=== PATIENT | male | born 1960 | race Caucasian/White ===

== ENCOUNTER → 2016-10-01 | Outpatient (CLI) | payer BC ==
--- NOTE | 2016-10-01 11:00 | XR ---
EXAMINATION TYPE: XR chest 2V DATE OF EXAM: 10/01/2016 10:24 AM HISTORY: J45.901 asthma w/exacerbation. REFERENCE: Previous study dated 11/14/2014. FINDINGS: The lungs are clear. Pleural spaces are clear. Heart size is normal. IMPRESSION: NORMAL CHEST.
== END | disposition home or self-care (01) ==
LOC: RADXRMAIN 10:13
PROVIDERS: ATTEND Physician Assistant
DX: J45.901 Unspecified asthma with (acute) exacerbation (principal)
CPT/HCPCS: 71020

== ENCOUNTER → 2018-05-15 | Outpatient (CLI) | payer BC ==
--- NOTE | 2018-05-16 13:30 | XR ---
EXAMINATION TYPE: XR Hip Complete LT DATE OF EXAM: 05/15/2018 CLINICAL HISTORY: Left hip pain with no known injury. TECHNIQUE: AP and frogleg views of the left hip are obtained. COMPARISON: None. FINDINGS: There is no acute fracture/dislocation evident in the left hip. The joint space in the le ft hip displays small subchondral cysts, small marginal osteophytes, acetabular roof sclerosis and mi ld joint space narrowing. No cam deformity at the femoral head neck junction. Surgical coils from kiana or abdominal surgery are partially visualized. The overlying soft tissue appears unremarkable. IMPRESSION: There is no acute fracture or dislocation in the left hip. Moderate left femoral acetabu lar arthropathy.
== END | disposition home or self-care (01) ==
LOC: RADXRMAIN 16:04
PROVIDERS: ATTEND Physician Assistant
DX: M16.12 Unilateral primary osteoarthritis, left hip (principal)
CPT/HCPCS: 73502

== ENCOUNTER → 2018-11-03 | Outpatient (CLI) | payer BC ==
--- NOTE | 2018-11-04 10:28 | MR ---
EXAMINATION TYPE: MR cervical spine wo con DATE OF EXAM: 11/03/2018 COMPARISON: None HISTORY: Neck pain, Migraines CONTRAST: Performed utilizing 0 mL intravenous Gadavist gadolinium contrast. TECHNIQUE: Multiplanar multiecho imaging on a 3.0 [place] magnet is performed through the cervical spin e. FINDINGS: The craniovertebral junction is normal. Vertebral body alignment is normal. C7-T1: Mild right paracentral disc bulge is present with anterior thecal sac compression. No cord co ntact is evident. No spinal canal stenosis is present. Mild right foraminal narrowing is present.. C6-7: There is a small central to right paracentral disc bulge with mild anterior thecal sac compress ion. No AP spinal canal stenosis is present. Neural foramen are patent.. C5-6: Broad-based disc bulge is present. This is greater in the left paracentral region no cord conta ct is evident. No spinal canal stenosis is present. There is moderate left foraminal stenosis.. C4-5: There is a small central protrusion with mild anterior thecal sac compression. No AP spinal can al stenosis present. No cord contact is evident. Right neural foraminal narrowing is present due to u ncovertebral joint hypertrophy. C3-4: There is a moderate central protrusion with moderate anterior thecal sac compression. This may have cord contact. Cord deformity is not identified. No AP spinal canal stenosis present. Neural fora men are patent.. C2-3: No focal disc herniation or significant disc bulge is evident. No spinal canal stenosis or jimenez ral foraminal stenosis is present. IMPRESSIONS: 1. Central protrusion with moderate anterior thecal sac compression and probable cord contact without deformity at C3-4. No stenosis is present. 2. Small central protrusion C4-5 with mild anterior thecal sac compression. 3. Disc bulging C5-6 C6-7 with anterior thecal sac contact discussed above. 4. Mild right paracentral disc bulge with anterior thecal sac compression C7-T1. 5. Mild to moderate Foraminal narrowing due to disc bulging and uncovertebral joint hypertrophy discu ssed above
== END | disposition home or self-care (01) ==
LOC: RADMRIMAIN 16:01
PROVIDERS: ATTEND Psychiatry & Neurology Neurology
DX: M48.02 Spinal stenosis, cervical region (principal); M50.11 Cervical disc disorder with radiculopathy, high cervical region; M50.822 Other cervical disc disorders at C5-C6 level; M50.83 Other cervical disc disorders, cervicothoracic region
CPT/HCPCS: 72141

== ENCOUNTER → 2018-11-10 | Outpatient (CLI) | payer BC ==
--- NOTE | 2018-11-11 08:35 | XR ---
EXAMINATION TYPE: XR chest 2V DATE OF EXAM: 11/10/2018 COMPARISON: 10/01/2016 HISTORY: Cough for one week TECHNIQUE: Frontal and lateral views of the chest are obtained. FINDINGS: There is no focal air space opacity, pleural effusion, or pneumothorax seen. Strand-like l eft basilar atelectasis is noted. The cardiac silhouette size is within normal limits. The osseous structures are intact. Mild multilevel degenerative changes of the thoracic spine are seen. IMPRESSION: Strand-like left basilar atelectasis otherwise no acute cardiopulmonary process.
== END ==
LOC: RADXRMAIN 16:10
PROVIDERS: ATTEND Physician Assistant
DX: J98.11 Atelectasis (principal)
CPT/HCPCS: 71046

== ENCOUNTER → 2018-12-18 | Outpatient (CLI) | payer BC ==
--- NOTE | 2018-12-18 14:59 | MR ---
EXAMINATION TYPE: MR brain wo/w con DATE OF EXAM: 12/18/2018 COMPARISON: CT dated 09/18/2018 and MRI brain dated 11/16/2014 HISTORY: Vascular headache TECHNIQUE: Multiplanar, multisequence images of the brain and brainstem is performed without and with IV contras t, utilizing 10 mL intravenous Gadavist . FINDINGS: Diffusion weighted images demonstrate no evidence of a recent infarct or other diffusion ab normality. There is no extra-axial fluid collection. There are stable punctate foci of subcortical a nd periventricular white matter change, the largest measuring up to 3 mm on the left in the frontal p eriventricular white matter and the largest on the right measuring 2 3 mm also in the subcortical par ietal lobe. The ventricular system and cisternal spaces are normal in size and appearance. The brain volume is a ge appropriate. Midline structures demonstrate normal morphology. The craniocervical junction appears within normal limits. Post contrast images demonstrate no abnormal intracranial enhancement. However, there appear s to be lack of enhancement in the left A1 segment. The dural venous sinuses appear patent. There is mild mucosal thickening in the maxillary sinuses and ethmoid sinuses, improved from the prior examina tion of 2014. The sphenoid sinus and mastoid sinuses are well aerated with only scant mucosal thicken ing seen in the frontal sinuses. IMPRESSION: 1. The left A1 segment appears occluded although this could relate to slice selection and could be fu lly evaluated with MRA brain. 2. Mild burden nonspecific white matter change is likely on the basis of chronic microangiopathy alth ough sequela of migraines is an alternative possibility. No abnormal intracranial enhancement. 3. No evidence of acute infarct, midline shift or mass effect. 4. Improved paranasal sinus disease in comparison to the exam of 2014.
== END | disposition home or self-care (01) ==
LOC: RADMRIMAIN 10:44
PROVIDERS: ATTEND Psychiatry & Neurology Neurology
DX: I73.9 Peripheral vascular disease, unspecified (principal)
CPT/HCPCS: 70553; A9585

== ENCOUNTER → 2019-01-11 | Outpatient (CLI) | payer BC ==
--- NOTE | 2019-01-12 07:03 | MR ---
EXAMINATION TYPE: MR angio head wo con DATE OF EXAM: 01/11/2019 COMPARISON: Prior MRI brain December 18, 2018. Prior CT brain September 18, 2018. HISTORY: Strong history of migraine headaches. Prior abnormal MRI. TECHNIQUE: Time of flight images focusing on the [place] were performed without contrast.. 2-D and 3-D postprocessing imaging is performed on independent workstation and reviewed. FINDINGS: There is codominant vertebrobasilar system. Vertebral arteries are patent to basilar juncti on. There are hypoplastic bilateral posterior communicating arteries. There is no significant focal s tenosis or aneurysmal change in the posterior circulation. There is small caliber but patent left A1 segment. There is patent anterior communicating artery. The re is no significant focal stenosis or aneurysmal change in the anterior circulation. IMPRESSION: No aneurysmal change at the level of the [place].
== END | disposition home or self-care (01) ==
LOC: RADMRIMAIN 15:37
PROVIDERS: ATTEND Psychiatry & Neurology Neurology
DX: R94.02 Abnormal brain scan (principal)
CPT/HCPCS: 70544

== ENCOUNTER → 2019-06-18 | Outpatient (CLI) | payer BC ==
--- NOTE | 2019-06-18 12:22 | XR ---
EXAMINATION TYPE: XR chest 2V DATE OF EXAM: 06/18/2019 COMPARISON: 11/10/2018 INDICATION: Asthma, cough TECHNIQUE: Frontal and lateral views of the chest are obtained. FINDINGS: The heart size is normal. The pulmonary vasculature is normal. The lungs are clear. IMPRESSION: 1. No acute pulmonary process.
== END | disposition home or self-care (01) ==
LOC: RADXRMAIN 11:55
PROVIDERS: ATTEND Internal Medicine
DX: R05 Cough (principal)
CPT/HCPCS: 71046

== ENCOUNTER → 2019-07-12 | Outpatient (CLI) | payer BC ==
--- NOTE | 2019-07-12 09:19 | US ---
EXAMINATION TYPE: US abdomen complete DATE OF EXAM: 07/12/2019 COMPARISON: NONE CLINICAL HISTORY: R10.84 Abdominal Pain. Weight loss EXAM MEASUREMENTS: Liver Length: 17.7 cm Gallbladder Wall: 0.3 cm CBD: 0.3 cm Spleen: n/a Right Kidney: 9.9 x 5.3 x 4.1 cm Left Kidney: 10.7 x 5.7 x 4.6 cm Pancreas: visualized portions wnl, limited by overlying midline bowel gas Liver: scanned intercostally, appears wnl Gallbladder: wnl Evidence for sonographic Holcomb's sign: no CBD: visualized portions wnl, limited by overlying bowel gas Spleen: obscured by overlying bowel gas Right Kidney: wnl Left Kidney: wnl Upper IVC: wnl Abd Aorta: wnl The liver is homogenous. The intrahepatic portion of the IVC and proximal abdominal aorta are within normal limits. There is no evidence of cholelithiasis. Common bile duct is unremarkable. There is limited visualization of the pancreas, largely obscured by overlying bowel gas. The spleen is obscure d by bowel gas. Kidneys are symmetric and free of hydronephrosis. No renal lesions are seen. IMPRESSION: 1. No sonographic evidence of cholelithiasis nor acute cholecystitis. 2. There is markedly limited evaluation of the pancreas and complete obscuration of the spleen by ove rlying bowel gas.
== END | disposition home or self-care (01) ==
LOC: RADUSWWP 07:42
PROVIDERS: ATTEND Internal Medicine
DX: R10.84 Generalized abdominal pain (principal)
CPT/HCPCS: 76700

== ENCOUNTER → 2019-07-29 | Outpatient (CLI) | payer BC ==
--- NOTE | 2019-07-29 13:09 | XR ---
EXAMINATION TYPE: XR lumbosacral spine min 4V DATE OF EXAM: 07/29/2019 CLINICAL HISTORY: Low back pain TECHNIQUE: Frontal, lateral, and oblique images of the lumbar spine are obtained. COMPARISON: None FINDINGS: Rudimentary right 12th rib and pseudoarticulation of the left 12th rib are incidentally see n. There is a very mild levoscoliosis of the lumbar spine. There are 5 lumbar type vertebral bodies i dentified. The lumbar spine shows no evidence of acute fracture or dislocation. Vertebral body heigh ts are maintained. There is very minimal retrolisthesis of L3 on L4 and L1 on L2. Intervertebral disc space narrowing is seen at T12-L1. Facet arthropathy is present at L3-S1. The oblique images appear within normal limits. The overlying soft tissue appears unremarkable. IMPRESSION: 1. No acute fracture is seen in the lumbar spine. 2. Multilevel very mild malalignment is likely on a degenerative basis with mild multilevel degenerat iwona disc disease of the lumbar spine. 3. Mild levoscoliosis of the lumbar spine.
== END | disposition home or self-care (01) ==
LOC: RADXRMAIN 11:47
PROVIDERS: ATTEND Internal Medicine
DX: M51.36 Other intervertebral disc degeneration, lumbar region (principal); M41.86 Other forms of scoliosis, lumbar region
CPT/HCPCS: 72110

== ENCOUNTER → 2019-08-03 | Outpatient (CLI) | payer BC ==
[2019-08-03 19:46] LABS: Dermato. farinae IgE <0.10 kU/L
[2019-08-03 19:47] LABS: Cat Epith & Dander IgE <0.10 kU/L; Dog Dander IgE <0.10 kU/L
[2019-08-03 19:48] LABS: Alternaria alternata IgE <0.10 kU/L; Aspergillus fumagatus IgE <0.10 kU/L; Cladosporian herbarum IgE <0.10 kU/L; Cockroach IgE <0.10 kU/L; Maple (Box Elder) IgE <0.10 kU/L
[2019-08-03 19:49] LABS: Birch IgE <0.10 kU/L; Elm IgE <0.10 kU/L; Oak IgE <0.10 kU/L
[2019-08-03 19:50] LABS: Ragweed,Common IgE <0.10 kU/L
[2019-08-03 19:52] LABS: Immunoglobulin E 5.58 IU/mL (0.00-114.00); Red Top (Bentgrass) IgE <0.10 kU/L
== END | disposition home or self-care (01) ==
LOC: LABWHC1 12:45
PROVIDERS: ATTEND Internal Medicine
DX: J45.20 Mild intermittent asthma, uncomplicated (principal); J30.2 Other seasonal allergic rhinitis; M62.81 Muscle weakness (generalized); Z87.898 Personal history of other specified conditions
CPT/HCPCS: 36415; 82550; 82785; 86003

== ENCOUNTER → 2019-08-14 | Outpatient (CLI) | payer BC ==
--- NOTE | 2019-08-16 08:40 | CT ---
EXAMINATION TYPE: CT ChestAbdPelvis w con DATE OF EXAM: 08/14/2019 COMPARISON: None HISTORY: Abnormal weight loss CT DLP: 1718 mGycm CONTRAST: CT scan of the chest, abdomen and pelvis is performed with Oral Contrast and with IV Contrast, patien t injected with 100 ml mL of Isovue 300. CT Chest: LUNGS: The lungs are clear and free of infiltrate or atelectasis. No pulmonary nodule or mass is det ected. No pleural effusion or CT evidence of interstitial lung disease. MEDIASTINUM: Thoracic aorta is of normal caliber. The heart is not enlarged. No evidence for media stinal mass or adenopathy. HILAR STRUCTURES: No evidence for mass. No hilar adenopathy is appreciated. OTHER: No significant abnormality. CONTRAST CT ABDOMEN AND PELVIS FINDINGS: LIVER/GB: No calcified gallstones. No space occupying hepatic lesion. Biliary tree is of normal ca liber. PANCREAS: No inflammation. No distinct mass. SPLEEN: No splenic enlargement. No lesion seen. ADRENALS: No nodule. No thickening. KIDNEYS/BLADDER: No hydronephrosis. No nephrolithiasis. No disctinct renal mass. BOWEL: Normal appendix. Normal bowel caliber. No inflammation. GENITAL ORGANS: No gross abnormality. LYMPH NODES: No greater than 1cm abdominal or pelvic lymph nodes are appreciated. AORTA: No significant abnormality. OSSEOUS STRUCTURES: No significant abnormality is seen. OTHER: No significant additional abnormality is seen. IMPRESSION: 1. No significant abnormality to account for the patient's symptoms.
== END | disposition home or self-care (01) ==
LOC: RADCTMAIN 13:33
PROVIDERS: ATTEND Internal Medicine
DX: R63.4 Abnormal weight loss (principal)
CPT/HCPCS: 71260; 74177; Q9967

== ENCOUNTER → 2019-08-20 | Outpatient (CLI) | payer BC | END | disposition home or self-care (01) | LOC: LABWHC1 11:20 | PROVIDERS: ATTEND Nurse Practitioner Family | DX: M79.10 Myalgia, unspecified site (principal) | CPT/HCPCS: 36415; 82550 ==

== ENCOUNTER → 2019-11-19 | Outpatient (CLI) | payer BC | END | disposition home or self-care (01) | LOC: LABWHC1 09:15 | PROVIDERS: ATTEND Nurse Practitioner Family | DX: M62.81 Muscle weakness (generalized) (principal) | CPT/HCPCS: 36415; 85652; 86140 ==

== ENCOUNTER → 2019-12-09 | Outpatient (CLI) | payer BC ==
[2019-12-09 21:56] LABS: Anti-DNA, DS unit <1.0 IU/mL; Anti-Smith Ab Interp NEGATIVE (NEGATIVE); Cyclic Citrull Pep IgG Unit <0.5 U/mL; Cyclic Citrullinated Pep IgG NEGATIVE (NEGATIVE); DNA Double-Stranded NEGATIVE (NEGATIVE); JO-1 IgG Antibody <0.2 AI; Scleroderma SC-70 Ab <0.2 AI
[2019-12-10 12:03] LABS: ANA Pattern Speckled
== END | disposition home or self-care (01) ==
LOC: LABWHC1 09:40
PROVIDERS: ATTEND Nurse Practitioner Family
DX: M25.50 Pain in unspecified joint (principal)
CPT/HCPCS: 36415; 83516; 86038; 86039; 86200; 86225; 86235

== ENCOUNTER → 2019-12-30 | Outpatient (CLI) | payer BC ==
[~2019-12-30] MED LIST: IODINE/POTASS IOD (LUGOLS) BOTTLE TOPICAL ONE
--- NOTE | 2019-12-31 07:44 | NM ---
EXAMINATION TYPE: NM DatScan Brain SPECT DATE OF EXAM: 12/30/2019 COMPARISON: NONE HISTORY: Tremor unspecified TECHNIQUE: 10 drops of Lugol's solution was administered 1 hour prior to injection as a thyroid bloc lovely agent. After the administration of 4.54 mCi I-123 Ioflupane DaTscan. Images obtained 3.5 hours post injection. SPECT images of the brain were acquired with axial and coronal reconstructions. FINDINGS: Normal and symmetric uptake is present along the striata IMPRESSION: Normal DYLLAN scan
== END | disposition home or self-care (01) ==
LOC: RADNMMAIN 10:42
PROVIDERS: ATTEND Psychiatry & Neurology Neurology
DX: G25.0 Essential tremor (principal); I10 Essential (primary) hypertension; E78.5 Hyperlipidemia, unspecified; F41.8 Other specified anxiety disorders; F32.9 Major depressive disorder, single episode, unspecified; G43.909 Migraine, unspecified, not intractable, without status migrainosus
CPT/HCPCS: 78803; A9584

== ENCOUNTER → 2020-02-01 | Outpatient (CLI) | payer BC ==
[2020-02-01 14:51] VITALS: BP 135/88; PULSE 67; RESP 16; TEMP 98.5
--- NOTE | 2020-02-01 15:27 | P.PAINCN ---
History of Present Illness - History of Present Illness This is a 59-year-old patient referred by Dr. Arrieta with a chief complaint of chronic pain in low back. Pain started in June 2019 when he was pulling on his boots at work. 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 He's had multiple scans and imaging and even a hip injection in 07/2019 with no help. He also has a history of severe migraines which is being managed with Pamelor and Sumatripan and is being worked up for possible JAQUELINE. The pain is currently a 5/10 located bilaterally in the low back, sometimes it will radiate into his buttocks and outer-lateral legs stopping at the calfs. Pain is described aching, dull, sharp and occasional pins and needles. Things that are heat, lying supine, marijuana (only smokes one at night to help him sleep), and TENS unit. Exacerbating factors are bending, sitting too long, walking too far, or changing positions. Patient has been taking medications OTC with little to no efficacy, TENS unit is the most helpful. Patient denies adverse drug effects from medications. Patient also denies new-onset weakness, bowel/bladder incontinence, or any other signs or symptoms of cauda equina syndrome. There are no signs of acute intoxication, and no indications of medication diversion or overuse. He has not had surgery or injections previously. He is currently doing PT In addition to above, 13-point review of systems is also negative for chest pain, shortness of breath, changes in vision, changes in hearing, new onset weakness, abdominal pain, diarrhea, extreme fatigue, malaise, fever, skin changes, homicidal or suicidal ideation, or bowel or bladder incontinence. Physical exam: Vital Signs: Reviewed in EMR GENERAL: Well appearing, in no acute distress PSYCH: Mood and affect is appropriate. Awake, alert, and oriented SKIN: Skin color, texture, turgor normal, no rashes or lesions HEENT: Normocephalic, atraumatic. EOM intact CV: No pedal edema RESP: Respirations are unlabored, no audible wheezing GI: Abdomen non-distended MUSCULOSKELETAL: Bilateral upper and lower extremity strength is normal and symmetric. No atrophy or tone abnormalities are noted. Lumbar spine: Straight leg raising in the sitting position is negative for radicular pain. pain to palpation over the lumbar spine and paraspinous muscles. Positive for pain with facet loading and back extension/rotation. Limited lumbar extension, adequate flexion Buttocks: No pain to palpation over the PSIS, Yadiel test is positive for low back pain Extremities: Peripheral joint ROM is full and pain free without obvious instability or laxity in all four extremities. No edema or skin discolorations noted. Gait: Gait is antalgic, stooped over as he walks NEUR: Bilateral upper and lower extremity coordination and muscle stretch reflexes are physiologic and symmetric. Negative clonus. No loss of sensation is noted. Cranial nerves are grossly intact. Imaging: MRI of lumbar spine from 10/2019 shows mild to moderate broad disc bulge with central protrusion and mild retrolisthesis at L3-L4, mild to moderate disc bulge minimally efacing anterior thecal sack at L4-L5 with posterior annular tear MRI left hip from 07/2019 shows left hip osteoarthritis Assessment: 1. Low back and bilateral buttock/leg pain: Patient has history of acute event that has brought on back and leg pain with MRI findings showing an annular tear with protrusion at the L4-L5 level. Patient describes symptoms of neurogenic claudication and some weakness in the bilateral lower extremities. Has had hip injection in the past with limited efficacy but has not had any injections in his lumbar spine before 2. Chronic daily migraine Plan: 1. Explanation: Diagnoses, prognoses, and multiple treatment options including but not limited to physical therapy, interventional therapies, medication management and surgery were discussed with the patient and all questions were answered to the patient's satisfaction. 2. Investigations: none 3. Counseling: The patient was counseled for 3 minutes on SMOKING CESSATION, EXERCISE. Specifically, the patient was instructed regarding the importance of smoking cessation, weight control, and exercise in the context of both chronic pain and overall health. 4. Procedures: L4-L5 ILESI and will schedule a 2nd one 2 weeks apart. Patient's medical insurance is running out on February 25 and after that they may have to consider disability given that his pain has caused him to not be able to work anymore 5. Consultations: None 6. Medications: None 7. Disposition: after procedure Past Medical History Past Medical History: Asthma, Hypertension, Musculoskeletal Disorder Additional Past Medical History / Comment(s): no longer needs BP med, chronic migraine headaches, bulging discs History of Any Multi-Drug Resistant Organisms: None Reported Past Surgical History: Hernia Repair Past Anesthesia/Blood Transfusion Reactions: No Reported Reaction Smoking Status: Former smoker - Past Family History Father Family Medical History: Hypertension Medications and Allergies Home Medications Medication Instructions Recorded Confirmed Type Albuterol Nebulized [Ventolin 2.5 mg INHALATION RT-Q4H PRN 11/15/14 02/01/20 History Nebulized] Albuterol Sulfate [Proventil Hfa] 1 - 2 puff PO RT-Q4H PRN 11/15/14 02/01/20 History Cyclobenzaprine [Flexeril] 10 mg PO HS 01/27/20 02/01/20 History Propranolol HCl 80 mg PO DAILY 01/27/20 02/01/20 History Allergies Allergy/AdvReac Type Severity Reaction Status Date / Time rosuvastatin calcium Allergy Severe PAIN/NUMBNE Verified 02/01/20 14:37 [From Crestor] SS PQRS Measure Charge Sheet Measure #226: Tobacco Use: Screen & Cessation Intervention: Pt not a tobacco user Measure #111: Pneumonia Vaccination: Pneumococcal vaccine NOT administered or previously given Measure #47: Advance Care Plan: Advance care planning discussed & documented, pt chose/unable to give Measure #412: Opioid Treatment Agreement: No documentation of signed opioid treatment agreement Measure #408: Opioid Therapy Follow-up Evaluation: Patient had NO f/u eval minimum every 3 months during opioid therapy Measure #317: Preventitive Care & Scrn High Bld Press & F/U: Normal blood pressure, f/u not required Measure #128: Body Mass Index (BMI) Screening & Follow-up: BMI documented within normal parameters Measure #131: Pain Assessment & Follow-up: Pain positive & plan documented Measure #431: Unhealthy Alcohol Use Preventative Care & Scrn: Patient not identified as an unhealthy alcohol user PQRS Narrative: Smoking Status Former smoker Pain Intensity [Lower Back] 6 Scale Used Numeric (1 - 10) Hx Alcohol Use (MH) No Home Medications: Ambulatory Orders Albuterol Nebulized [Ventolin Nebulized] 2.5 mg INHALATION RT-Q4H PRN 11/15/14 Albuterol Sulfate [Proventil Hfa] 1 - 2 puff PO RT-Q4H PRN 11/15/14 Cyclobenzaprine [Flexeril] 10 mg PO HS 01/27/20 Propranolol HCl 80 mg PO DAILY 01/27/20
== END | disposition home or self-care (01) ==
LOC: PNWHC3 14:21
PROVIDERS: ATTEND Anesthesiology
DX: M51.87 Other intervertebral disc disorders, lumbosacral region (principal); G43.909 Migraine, unspecified, not intractable, without status migrainosus; J45.909 Unspecified asthma, uncomplicated; I10 Essential (primary) hypertension; Z79.891 Long term (current) use of opiate analgesic; Z79.899 Other long term (current) drug therapy; Z88.8 Allergy status to other drugs, medicaments and biological substances; Z87.891 Personal history of nicotine dependence
CPT/HCPCS: 99211

== ENCOUNTER → 2020-02-08 | Outpatient (CLI) | payer BC ==
--- NOTE | 2020-02-08 12:05 | XR ---
EXAM TYPE: LUMBAR SPINE X RAY SERIES COMPARISON: 07/29/2019 HISTORY: Pain TECHNIQUE: 5 views are submitted including flexion-extension lateral views. FINDINGS: Multilevel moderate degenerative disc disease. There is a retrolisthesis of L3 relative to L4 and a s light anterolisthesis of L4 relative to L5. Diffuse osteopenia and multilevel facet arthropathy. There is slight reduction in the degree of retrolisthesis of L3 on flexion and extension images. Ante rolisthesis of L4 appears stable. Multilevel facet arthropathy and suspected foraminal encroachment. Minimal retrolisthesis of L1 relative to L2 unchanged from prior exam. IMPRESSION: 1. Multilevel degenerative disc disease with anterolisthesis L4 and L5. 2. Retrolisthesis L3 relative to L4 slightly improved on flexion and extension. 3. Multilevel facet arthropathy and suspected foraminal encroachment.
== END | disposition home or self-care (01) ==
LOC: RADXRMAIN 11:36
DX: M51.36 Other intervertebral disc degeneration, lumbar region (principal); M43.16 Spondylolisthesis, lumbar region; M46.96 Unspecified inflammatory spondylopathy, lumbar region
CPT/HCPCS: 72114

== ENCOUNTER 2020-02-10 08:29 | Day surgery (SDC) | payer BC ==
[2020-02-04 10:04] VITALS: BMI 23.3
[~2020-02-10 08:29] MED LIST changes: -IODINE/POTASS IOD (LUGOLS) BOTTLE TOPICAL ONE; +LACTATED RINGERS 1,000 ML IV SCH
[2020-02-10 08:48] VITALS: TEMP 97.6
[2020-02-10] MEDS ORDERED: LIDOCAINE 1% (10MG/ML) FOR IV START INTRADERMA ONE (08:57)
[2020-02-10] MEDS ORDERED: IOPAMIDOL M200 10 ML VIAL ONE (09:04)
[2020-02-10] MEDS ORDERED: fentaNYL (PF) 50 MCG/ML 2 ML AMP ONE (09:04)
[2020-02-10] MEDS ORDERED: methylPREDNISolone ACETATE 40 MG/ML 1 ML VIAL ONE (09:04)
[2020-02-10] MEDS ORDERED: MIDAZOLAM 2 MG/2 ML VIAL ONE (09:04)
--- NOTE | 2020-02-10 09:16 | P.PCN ---
Date of Procedure: 02/10/20 Procedure(s) Performed: PREOPERATIVE DIAGNOSIS: 1- Lumbar Degenerative Disc Diseases POSTOPERATIVE DIAGNOSIS: 1-Lumber Degenerative Disc Diseases PROCEDURE 1. Lumbar epidural steroid injection under fluoroscopic guidance at the L4-5 level. (Fluoroscopy imaging was available in radiology department) 2. Lumbar epidurogram. ANESTHESIA: Local with 1% lidocaine 3 ml and , moderate sedation with intravenous Versed 1mg ,and fentanyle 50 Mcg EBL: Minimal PROCEDURE INDICATION: The patient with low back pain and radiculitis symptoms unresponsive to conservative treatment. Fluoroscopy was used to optimize visualization of the needle placement and to maximize safety. PROCEDURE DESCRIPTION / TECHNIQUE: The patient was seen and identified in the preoperative area. Risks, benefits, complications including but not limited to infections ,bleeding ,allergic reaction to the medications ,nerve damage and not complete pain releife , and alternatives were discussed with the patient. The patient agreed to proceed with the procedure and signed the consent. IV was started, and vital signs were stable. Patient was taken to the OR and time out was completed. The patient was placed in the prone position on procedure table and a pillow was placed under the abdomen to reduce lumbar lordosis. The lumbosacral area was prepped and draped in the usual sterile fashion.ere closely monitored during the procedure. Conscious sedation was used during the procedure to decrease patients anxiety. Vital signs was monitered during the entire procedure. Using anterior-posterior fluoroscopy, the L4-5 interlaminar space was identified and the skin over this site was marked and then infiltrated with 1% lidocaine subcutaneously. Subsequently, a 20-gauge Tuohy epidural needle was inserted and advanced toward the epidural space using the ``Loss of resistance technique and guided by AP and lateral fluoroscopy. The correct needle position in the epidural space was verified with the injection of 2 mL of the water soluble contrast dye Isovue 200 contrast and observing an excellent epidurogram with the epidural spread of the dye, after negative aspiration for blood and CSF and in the absence of paresthesias. Again after negative aspiration, a 6 ml mixture containing 80 mg of Depo-medrol , and 2 ml of preservative free Normal Saline, and 2 ml of preservative free lidocaine 1% solution was injected and a washout of epidurogram was seen. Needle was withdrawn intact, skin was cleansed, and bandages were applied. COMPLICATIONS: None DISPOSITION / PLANS: The patient was placed in a supine position and transferred to the recovery area in a stable condition for observation. There was no evidence of lower extremity motor or sensory deficit after the procedure. Patient was discharged from the recovery room after meeting discharge criteria. Home discharge instructions were given to the patient by the staff. The patient was reexamined prior to discharge. The patient will schedule a follow up in the clinic in 2-4 weeks.
[2020-02-10] MEDS ORDERED: IV FLUID CONTINUATION 1,000 ML IV ONE (09:21)
--- NOTE | 2020-02-10 09:25 | FL ---
EXAMINATION TYPE: FL guided pain mgmt statistic DATE OF EXAM: 02/10/2020 HISTORY: Fluoroscopy time 3 seconds of fluoroscopy provided. IMPRESSION: 1. Fluoroscopy time.
[2020-02-10 09:45] VITALS: BP 114/74; PULSE 64; RESP 18
== END 2020-02-10 10:03 | disposition home or self-care (01) ==
LOC: ORPAIN 08:29
PROVIDERS: ATTEND Specialist
DX: M51.16 Intervertebral disc disorders with radiculopathy, lumbar region (principal); Z88.8 Allergy status to other drugs, medicaments and biological substances
CPT/HCPCS: 62323; J2250; J1030; J3010; Q9966

== ENCOUNTER 2020-02-24 07:26 | Day surgery (SDC) | payer BC ==
[2020-02-18 14:01] VITALS: BMI 23.6
[2020-02-24 07:54] VITALS: TEMP 97.2
[2020-02-24] MEDS ORDERED: LIDOCAINE 1% (10MG/ML) FOR IV START INTRADERMA ONE (07:55)
[2020-02-24] MEDS ORDERED: IOPAMIDOL M200 10 ML VIAL ONE (08:39)
[2020-02-24] MEDS ORDERED: methylPREDNISolone ACETATE 40 MG/ML 1 ML VIAL ONE (08:39)
[2020-02-24] MEDS ORDERED: MIDAZOLAM 2 MG/2 ML VIAL ONE (08:39)
[2020-02-24] MEDS ORDERED: fentaNYL (PF) 50 MCG/ML 2 ML AMP ONE (08:39)
--- NOTE | 2020-02-24 08:48 | P.PCN ---
Date of Procedure: 02/24/20 Procedure(s) Performed: 1- Lumbar Degenerative Disc Diseases POSTOPERATIVE DIAGNOSIS: 1-Lumber Degenerative Disc Diseases PROCEDURE 1. Lumbar epidural steroid injection under fluoroscopic guidance at the L4-5 level. (Fluoroscopy imaging was available in radiology department) 2. Lumbar epidurogram. ANESTHESIA: Local with 1% lidocaine 3 ml and , moderate sedation with intravenous Versed 2mg ,and fentanyle 50 Mcg EBL: Minimal PROCEDURE INDICATION: The patient with low back pain and radiculitis symptoms unresponsive to conservative treatment. Fluoroscopy was used to optimize visualization of the needle placement and to maximize safety. PROCEDURE DESCRIPTION / TECHNIQUE: The patient was seen and identified in the preoperative area. Risks, benefits, complications including but not limited to infections ,bleeding ,allergic reaction to the medications ,nerve damage and not complete pain releife , and alternatives were discussed with the patient. The patient agreed to proceed with the procedure and signed the consent. IV was started, and vital signs were stable. Patient was taken to the OR and time out was completed. The patient was placed in the prone position on procedure table and a pillow was placed under the abdomen to reduce lumbar lordosis. The lumbosacral area was prepped and draped in the usual sterile fashion.ere closely monitored during the procedure. Conscious sedation was used during the procedure to decrease patients anxiety. Vital signs was monitered during the entire procedure. Using anterior-posterior fluoroscopy, the L4-5 interlaminar space was identified and the skin over this site was marked and then infiltrated with 1% lidocaine subcutaneously. Subsequently, a 20-gauge Tuohy epidural needle was inserted and advanced toward the epidural space using the ``Loss of resistance technique and guided by AP and lateral fluoroscopy. The correct needle position in the epidural space was verified with the injection of 2 mL of the water soluble contrast dye Isovue 200 contrast and observing an excellent epidurogram with the epidural spread of the dye, after negative aspiration for blood and CSF and in the absence of paresthesias. Again after negative aspiration, a 6 ml mixture containing 80 mg of Depo-medrol , and 2 ml of preservative free Normal Saline, and 2 ml of preservative free lidocaine 1% solution was injected and a washout of epidurogram was seen. Needle was withdrawn intact, skin was cleansed, and bandages were applied. COMPLICATIONS: None DISPOSITION / PLANS: The patient was placed in a supine position and transferred to the recovery area in a stable condition for observation. There was no evidence of lower extremity motor or sensory deficit after the procedure. Patient was discharged from the recovery room after meeting discharge criteria. Home discharge instructions were given to the patient by the staff. The patient was reexamined prior to discharge. The patient will schedule a follow up in the clinic in 2-4 weeks.
[2020-02-24] MEDS ORDERED: IV FLUID CONTINUATION 600 ML IV ONE (08:53)
--- NOTE | 2020-02-24 09:06 | FL ---
EXAMINATION TYPE: FL guided pain mgmt statistic DATE OF EXAM: 02/24/2020 CLINICAL HISTORY: Low back pain. TECHNIQUE: Fluoroscopy. COMPARISON: None. FINDINGS: Fluoroscopic guidance was provided during pain relief procedure performed by Dr. Abbasi . A total of 2 seconds of fluoroscopic time was utilized during the procedure and single spot fluoro scopic image is acquired. Single image acquired shows needle localization at L4-L5 level with contra st injection. IMPRESSION: As Above.
[2020-02-24 09:14] VITALS: BP 128/83; RESP 20
[2020-02-24 09:16] VITALS: PULSE 63
== END 2020-02-24 09:51 | disposition home or self-care (01) ==
LOC: ORPAIN 07:26
PROVIDERS: ATTEND Specialist
DX: M51.16 Intervertebral disc disorders with radiculopathy, lumbar region (principal); Z88.8 Allergy status to other drugs, medicaments and biological substances
CPT/HCPCS: 62323; J2250; J1030; J3010; Q9966

== ENCOUNTER → 2020-03-22 | Outpatient (CLI) | payer BC, OTHER ==
[2020-03-22 13:52] VITALS: BP 143/84; PULSE 71; RESP 18; TEMP 98.3
--- NOTE | 2020-03-22 14:16 | P.PAINPG ---
Subjective Progress Note Date: 03/22/20 This is a 59-year-old patient referred by Dr. Arrieta with a chief complaint of chronic pain in low back. Pain started in June 2019 when he was pulling on his boots at work. 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 He's had multiple scans and imaging and even a hip injection in 07/2019 with no help. He also has a history of severe migraines which is being managed with Pamelor and Sumatripan and is being worked up for possible JAQUELINE. At our initial visit we felt his pain could be mediated from a disc bulge specifically at L4-L5, he is s/p LESI at that level x 2. Patient so that the lumbar epidural steroid injection worked at most for a week. Pain is currently 8 out of 10 located in the low back with occasional radiation into the buttocks, lower thoracic spine, and outer lateral legs stopping at the calves. Pain is constant aching and dull with occasional pins and needles. Alleviating factors are heat lying supine in marijuana (only smokes one at night help him sleep) and TENS unit exacerbating factors or any form of physical movement. Patient is taking Flexeril occasionally night to help which she says only helps with sleep. Patient also denies new-onset weakness, bowel/bladder incontinence, or any other signs or symptoms of cauda equina syndrome. There are no signs of acute intoxication, and no indications of medication diversion or overuse. Note patient was accompanied by his who notes that he even went to significant anxiety and stress that they've recently lost her health insurance. There was some thought of committing him to psychiatric were given possible suicidal thoughts and intentions, however he did not express those today. says she has been watching closely over him and we'll admit him to [facility] if needed. Patient is also been in touch with Dr. Arrieta, who recommended epidurals and then possible medial branch workup. However given the loss of health insurance will be seeing a colleague of Dr. Berny Marrero In addition to above, 13-point review of systems is also negative for chest pain, shortness of breath, changes in vision, changes in hearing, new onset weakness, abdominal pain, diarrhea, extreme fatigue, malaise, fever, skin changes, homicidal or suicidal ideation, or bowel or bladder incontinence. Physical exam: Vital Signs: Reviewed in EMR GENERAL: Well appearing, in no acute distress PSYCH: Mood and affect is appropriate. Awake, alert, and oriented SKIN: Skin color, texture, turgor normal, no rashes or lesions HEENT: Normocephalic, atraumatic. EOM intact CV: No pedal edema RESP: Respirations are unlabored, no audible wheezing GI: Abdomen non-distended MUSCULOSKELETAL: Bilateral upper and lower extremity strength is normal and symmetric. No atrophy or tone abnormalities are noted. Lumbar spine: Straight leg raising in the sitting position is negative for radicular pain. pain to palpation over the lumbar spine and paraspinous muscles. Positive for pain with facet loading and back extension/rotation. Limited lumbar extension, adequate flexion Buttocks: pain to palpation over the PSIS, Yadiel test is positive for low back pain Extremities: Peripheral joint ROM is limited and painfulwithout obvious instability or laxity in all four extremities. No edema or skin discolorations noted. Gait: Gait is antalgic, stooped over as he walks NEUR: Bilateral upper and lower extremity coordination and muscle stretch reflexes are physiologic and symmetric. Negative clonus. No loss of sensation is noted. Cranial nerves are grossly intact. Imaging: MRI of lumbar spine from 10/2019 shows mild to moderate broad disc bulge with central protrusion and mild retrolisthesis at L3-L4, mild to moderate disc bulge minimally efacing anterior thecal sac at L4-L5 with posterior annular tear MRI left hip from 07/2019 shows left hip osteoarthritis Assessment: 1. Low back and bilateral buttock/leg pain: Plan: 1. Explanation: Diagnoses, prognoses, and multiple treatment options including but not limited to physical therapy, interventional therapies, medication management and surgery were discussed with the patient and all questions were answered to the patient's satisfaction. 2. Investigations: none 3. Counseling: Long conversation with the patient is regarding psychiatric comorbidities. I educated him and his that patients with chronic pain and psychiatric comorbidities tend have worse pain in general. In regards to medication management, I did not want to prescribe any medications given the fact that his did report possible suicidal intentions and many of these medications can cause changes in mood 4. Procedures: Patient had 2 recent L4-L5 epidurals with no efficacy. MRI is relatively benign, however Dr. Arrieta was seen the patient prior had recommended pursuing medial branch block. If this does not work, they will consider surgery. At this point I do not feel that surgery is a great option given that the MRI is relatively benign. MRI does not comment much on the facet joints, it is possible that the patient could be having pain mediated from these structures. We will attempt a lumbar medial branch block bilaterally at L4-L5 and L5-S1. 5. Consultations: None 6. Medications: None 7. Disposition: after procedure PQRS Measure Charge Sheet Measure #226: Tobacco Use: Screen & Cessation Intervention: Pt not a tobacco user Measure #111: Pneumonia Vaccination: Pneumococcal vaccine NOT administered or previously given Measure #47: Advance Care Plan: Advance care planning discussed & documented, pt chose/unable to give Measure #412: Opioid Treatment Agreement: No documentation of signed opioid treatment agreement Measure #408: Opioid Therapy Follow-up Evaluation: Patient had NO f/u eval minimum every 3 months during opioid therapy Measure #317: Preventitive Care & Scrn High Bld Press & F/U: Normal blood pressure, f/u not required Measure #128: Body Mass Index (BMI) Screening & Follow-up: BMI documented within normal parameters Measure #131: Pain Assessment & Follow-up: Pain positive & plan documented Measure #431: Unhealthy Alcohol Use Preventative Care & Scrn: Patient not identified as an unhealthy alcohol user PQRS Narrative: Smoking Status Former smoker Pain Intensity [Lower Back] 6 Scale Used Numeric (1 - 10) Hx Alcohol Use (MH) No PQRS Measure Charge Sheet PQRS Narrative: Smoking Status Former smoker Pain Intensity [Lower Back] 5 Scale Used Numeric (1 - 10) Home Medications: Ambulatory Orders Albuterol Nebulized [Ventolin Nebulized] 2.5 mg INHALATION RT-Q4H PRN 11/15/14 Albuterol Sulfate [Proventil Hfa] 1 - 2 puff PO RT-Q4H PRN 11/15/14 Cyclobenzaprine [Flexeril] 5 mg PO HS 01/27/20 Propranolol HCl 80 mg PO HS 01/27/20 Controlled Substance Measures - Controlled Substance Measures Is patient prescribed a controlled substance at discharge?: No
== END | disposition home or self-care (01) ==
LOC: PNWHC3 13:32
PROVIDERS: ATTEND Anesthesiology
DX: M54.5 Low back pain (principal); M79.605 Pain in left leg; M79.604 Pain in right leg; Z87.891 Personal history of nicotine dependence; Z79.891 Long term (current) use of opiate analgesic; Z79.899 Other long term (current) drug therapy
CPT/HCPCS: 99211

== ENCOUNTER 2020-04-13 08:31 | Day surgery (SDC) | payer BC, OTHER ==
[2020-04-13 08:45] VITALS: TEMP 97.8
[2020-04-13] MEDS ORDERED: LACTATED RINGERS 1,000 ML IV ONE (08:46)
[2020-04-13] MEDS ORDERED: LIDOCAINE 1% (10MG/ML) FOR IV START INTRADERMA ONE (08:46)
[2020-04-13] MEDS ORDERED: MIDAZOLAM 2 MG/2 ML VIAL ONE (09:08)
[2020-04-13] MEDS ORDERED: TRIAMCINOLONE ACETONIDE 40 MG/ML 1 ML VIAL ONE (09:08)
[2020-04-13] MEDS ORDERED: ROPIVACAINE 5MG/ML 20ML VIAL ONE (09:08)
--- NOTE | 2020-04-13 09:27 | P.PCN ---
Date of Procedure: 04/13/20 Surgeon: Beatrice Sanchez Pathology: none sent Condition: stable Disposition: PACU Description of Procedure: PREOPERATIVE DIAGNOSIS : 1- Lumbar spondylosis with Facet Arthropathy without myelopathy . 2- Lumber degenerative disc disease POSTOPERATIVE DIAGNOSIS: 1- Lumbar spondylosis with Facet Arthropathy without myelopathy . 2- Lumber degenerative disc disease PROCEDURE: Diagnostic bilateral L4 -5 , and L5-S1 medial branch block under fluoroscopy Physician: Beatrice Sanchez MD ANESTHESIA: Local with 1% lidocaine; IV moderate conscious sedation with Versed 2 mg . EBL: Negligible COMPLICATION: None. PROCEDURE INDICATION: Chronic low back pain secondary to Facet arthropathy unresponsive to conservative treatment. PROCEDURE DESCRIPTION: the patient was seen and identified in the preop holding area , risks and benefits and possible complications of the procedure and alternatives were discussed with the patient, and the patient agreed to proceed with the procedure and signed the consent. IV was started and vital signs monitored during the procedure and fluoroscopy was used to maximize the benefit and accuracy of the needle placement, sedation was given to decrease patient anxiety, patient was taken to the procedure room and placed in prone position vital signs monitored. The patient was brought into the procedure room and placed in prone position. Skin was prepped with Chloraprep and draped in a sterile manner. Lidocaine 1% was used to numb the skin up at the target points that were chosen as follows: at the L5-S1 level which corresponds to the dorsal ramus of L5 the target points were at the superior medial aspect of the sacral ala on each side of the spine on the AP view of fluoroscopy, and for the L3 and L4 medial branches the target points were the connection between the transverse process and the superior to go process of L4 and L5 respectively on the oblique views of fluoroscopy. I used 22-gauge 3-1/2 inch Quincke spinal needles for this procedure and after contacting bone at the target points mentioned above I injected 1 mL of a mixture of Kenalog 40 mg +5 MLS of Ropivacaine 0.5% PF . Patient tolerated procedure well. At the end of the procedure the needles removed and a bandage applied after the skin was cleaned the cleaning solution. patient was then taken to the recovery room in stable condition and monitored in the recovery room for 20-30 minutes and discharged home in stable condition after discharge criteria met . A copy of the needle placement picture was saved to the C-arm machine.
[2020-04-13] MEDS ORDERED: IV FLUID CONTINUATION 600 ML IV ONE (09:33)
--- NOTE | 2020-04-13 09:44 | FL ---
Fluoroscopy INDICATION: Pain FINDINGS: Fluoroscopy time: 8 seconds. Images obtained: 3. IMPRESSIONS: 1. Documentation of fluoroscopy.
[2020-04-13 09:54] VITALS: RESP 20
[2020-04-13 10:01] VITALS: BP 122/68; PULSE 66
== END 2020-04-13 10:03 | disposition home or self-care (01) ==
LOC: ORPAIN 08:31
PROVIDERS: ATTEND Anesthesiology
DX: G89.29 Other chronic pain (principal); M47.816 Spondylosis without myelopathy or radiculopathy, lumbar region; M51.36 Other intervertebral disc degeneration, lumbar region; J45.909 Unspecified asthma, uncomplicated; Z79.899 Other long term (current) drug therapy; Z86.69 Personal history of other diseases of the nervous system and sense organs; Z88.8 Allergy status to other drugs, medicaments and biological substances
CPT/HCPCS: 64493; 64494; J2250; J3301; J2795; 99152

== ENCOUNTER 2020-05-12 06:17 | Day surgery (SDC) | payer OTHER ==
[2020-05-10 13:01] VITALS: BMI 23.7
[2020-05-12 06:45] VITALS: TEMP 97.2
[2020-05-12] MEDS ORDERED: MIDAZOLAM 2 MG/2 ML VIAL ONE (07:10)
[2020-05-12] MEDS ORDERED: TRIAMCINOLONE ACETONIDE 40 MG/ML 1 ML VIAL ONE (07:10)
[2020-05-12] MEDS ORDERED: ROPIVACAINE 5MG/ML 20ML VIAL ONE (07:10)
--- NOTE | 2020-05-12 07:29 | P.PCN ---
Date of Procedure: 05/12/20 Surgeon: Beatrice Sanchez Pathology: none sent Condition: stable Disposition: PACU Description of Procedure: PREOPERATIVE DIAGNOSIS : 1- Lumbar spondylosis with Facet Arthropathy without myelopathy . 2- Lumber degenerative disc disease POSTOPERATIVE DIAGNOSIS: 1- Lumbar spondylosis with Facet Arthropathy without myelopathy . 2- Lumber degenerative disc disease PROCEDURE: Diagnostic bilateral L4 -5 , and L5-S1 medial branch block under fluoroscopy Physician: Beatrice Sanchez MD ANESTHESIA: Local with 1% lidocaine; moderate sedation by the anesthesia services . EBL: Negligible COMPLICATION: None. PROCEDURE INDICATION: Chronic low back pain secondary to Facet arthropathy unresponsive to conservative treatment. PROCEDURE DESCRIPTION: the patient was seen and identified in the preop holding area , risks and benefits and possible complications of the procedure and alternatives were discussed with the patient, and the patient agreed to proceed with the procedure and signed the consent. IV was started and vital signs monitored during the procedure and fluoroscopy was used to maximize the benefit and accuracy of the needle placement, sedation was given to decrease patient anxiety, patient was taken to the procedure room and placed in prone position vital signs monitored. The patient was brought into the procedure room and placed in prone position. Skin was prepped with Chloraprep and draped in a sterile manner. Lidocaine 1% was used to numb the skin up at the target points that were chosen as follows: at the L5-S1 level which corresponds to the dorsal ramus of L5 the target points were at the superior medial aspect of the sacral ala on each side of the spine on the AP view of fluoroscopy, and for the L3 and L4 medial branches the target points were the connection between the transverse process and the superior to go process of L4 and L5 respectively on the oblique views of fluoroscopy. I used 22-gauge 3-1/2 inch Quincke spinal needles for this procedure and after contacting bone at the target points mentioned above I injected 1 mL of a mixture of Kenalog 40 mg +5 MLS of Ropivacaine 0.5% PF . Patient tolerated procedure well. At the end of the procedure the needles removed and a bandage applied after the skin was cleaned the cleaning solution. patient was then taken to the recovery room in stable condition and monitored in the recovery room for 20-30 minutes and discharged home in stable condition after discharge criteria met . A copy of the needle placement picture was saved to the C-arm machine.
[2020-05-12] MEDS ORDERED: IV FLUID CONTINUATION 1,000 ML IV ONE (07:35)
[2020-05-12 07:39] VITALS: RESP 18
[2020-05-12 07:49] VITALS: BP 135/86; PULSE 57
--- NOTE | 2020-05-12 08:28 | FL ---
EXAMINATION TYPE: FL guided pain mgmt statistic DATE OF EXAM: 05/12/2020 FLUOROSCOPY Fluoroscopy time of 6 seconds was used during bilateral lumbar facet block. 3 image/s document/s the procedure.
== END 2020-05-12 08:05 | disposition home or self-care (01) ==
LOC: ORPAIN 06:17
PROVIDERS: ATTEND Anesthesiology
DX: G89.29 Other chronic pain (principal); M47.816 Spondylosis without myelopathy or radiculopathy, lumbar region; M51.36 Other intervertebral disc degeneration, lumbar region; G43.909 Migraine, unspecified, not intractable, without status migrainosus; J45.909 Unspecified asthma, uncomplicated; Z88.8 Allergy status to other drugs, medicaments and biological substances; Z79.899 Other long term (current) drug therapy; Z79.1 Long term (current) use of non-steroidal anti-inflammatories (NSAID)
CPT/HCPCS: 64493; 64494; J2250; J3301; J2795

== ENCOUNTER → 2020-05-29 | Outpatient (CLI) | payer OTHER ==
[2020-05-29 13:01] VITALS: BP 134/89; PULSE 83; RESP 16; TEMP 98
--- NOTE | 2020-05-29 13:12 | P.PAINPG ---
Subjective Progress Note Date: 05/29/20 This is a 59-year-old patient referred by Dr. Arrieta with a chief complaint of chronic pain in low back. Pain started in June 2019 when he was pulling on his boots at work. 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 He's had multiple scans and imaging and even a hip injection in 07/2019 with no help. He also has a history of severe migraines which is being managed with Pamelor and Sumatripan and is being worked up for possible JAQUELINE. At our initial visit we felt his pain could be mediated from a disc bulge specifically at L4-L5, he is s/p LESI at that level x 2. However they only worked for a week. In our last visit we felt his pain may be facet mediated and we performed bilateral MBB at L4-L5 and L5-S1. Russell notes that she had good relief for about 2-3 days after recent medial branch blocks. Since then his pain is returned back significantly. Pain is currently 8 out of 10 located in the low back with occasional radiation into the buttocks, lower thoracic spine, and outer lateral legs stopping at the calves. Pain is constant aching and dull with occasional pins and needles. Alleviating factors are heat lying supine in marijuana (only smokes one at night help him sleep) and TENS unit exacerbating factors or any form of physical movement. Patient is taking Flexeril occasionally night to help which she says only helps with sleep. Patient also denies new-onset weakness, bowel/bladder incontinence, or any other signs or symptoms of cauda equina syndrome. There are no signs of acute intoxication, and no indications of medication diversion or overuse. He is accompanied by his . Patient is going through significant mental stresses and has recently been started on antidepressant medication. Suicidal ideation. has been helping as much she can with his overall care but is noted that lately he has been just laying in bed all day due to significant pain. They're hopeful that the radiofrequency ablation can help with his func tionality. Patient has been seeing Dr. Arrieta but they had a recent insurance change and have been having issues seeing him. Regardless they do not want surgery. In addition to above, 13-point review of systems is also negative for chest pain, shortness of breath, changes in vision, changes in hearing, new onset weakness, abdominal pain, diarrhea, extreme fatigue, malaise, fever, skin changes, homicidal or suicidal ideation, or bowel or bladder incontinence. Physical exam: Vital Signs: Reviewed in EMR GENERAL: Well appearing, in no acute distress PSYCH: Mood and affect is appropriate. Awake, alert, and oriented SKIN: Skin color, texture, turgor normal, no rashes or lesions HEENT: Normocephalic, atraumatic. EOM intact CV: No pedal edema RESP: Respirations are unlabored, no audible wheezing GI: Abdomen non-distended MUSCULOSKELETAL: Bilateral upper and lower extremity strength is normal and symmetric. No atrophy or tone abnormalities are noted. Lumbar spine: Straight leg raising in the sitting position is negative for radicular pain. pain to palpation over the lumbar spine and paraspinous muscles. Positive for pain with facet loading and back extension/rotation. Limited lumbar extension, adequate flexion Buttocks: pain to palpation over the PSIS, Yadiel test is positive for low back pain Extremities: Peripheral joint ROM is limited and painful without obvious instability or laxity in all four extremities. No edema or skin discolorations noted. Gait: Gait is antalgic, stooped over as he walks NEUR: Bilateral upper and lower extremity coordination and muscle stretch reflexes are physiologic and symmetric. Negative clonus. No loss of sensation is noted. Cranial nerves are grossly intact. Imaging: MRI of lumbar spine from 10/2019 shows mild to moderate broad disc bulge with central protrusion and mild retrolisthesis at L3-L4, mild to moderate disc bulge minimally efacing anterior thecal sac at L4-L5 with posterior annular tear MRI left hip from 07/2019 shows left hip osteoarthritis Assessment: 1. Low back and bilateral buttock/leg pain Plan: 1. Explanation: Diagnoses, prognoses, and multiple treatment options including but not limited to physical therapy, interventional therapies, medication management and surgery were discussed with the patient and all questions were answered to the patient's satisfaction. 2. Investigations: none 3. Counseling: Long conversation with the patient is regarding psychiatric comorbidities. I educated him and his that patients with chronic pain and psychiatric comorbidities tend have worse pain in general. In regards to medication management, I did not want to prescribe any medications given the fact that his did report possible suicidal intentions and many of these medications can cause changes in mood 4. Procedures: Bilateral L4-L5 and L5-S1 RFA 5. Consultations: Recommend physical therapy referral after RFA. Patient is becoming more deconditioned as he lays in bed all day and I encouraged him to be as mobile as active as he can. Patient is motivated to do so 6. Medications: None 7. Disposition: as needed PQRS Measure Charge Sheet Measure #226: Tobacco Use: Screen & Cessation Intervention: Pt not a tobacco user Measure #111: Pneumonia Vaccination: Pneumococcal vaccine NOT administered or previously given Measure #47: Advance Care Plan: Advance care planning discussed & documented, pt chose/unable to give Measure #412: Opioid Treatment Agreement: No documentation of signed opioid treatment agreement Measure #408: Opioid Therapy Follow-up Evaluation: Patient had NO f/u eval minimum every 3 months during opioid therapy Measure #317: Preventitive Care & Scrn High Bld Press & F/U: Normal blood pressure, f/u not required Measure #128: Body Mass Index (BMI) Screening & Follow-up: BMI documented within normal parameters Measure #131: Pain Assessment & Follow-up: Pain positive & plan documented Measure #431: Unhealthy Alcohol Use Preventative Care & Scrn: Patient not identified as an unhealthy alcohol user PQRS Narrative: Smoking Status Former smoker Pain Intensity [Lower Back] 6 Scale Used Numeric (1 - 10) Hx Alcohol Use (MH) No PQRS Measure Charge Sheet PQRS Narrative: Smoking Status Former smoker Pain Intensity [Lower Back] 5 Scale Used Numeric (1 - 10) Controlled Substance Measures - Controlled Substance Measures Is patient prescribed a controlled substance at discharge?: No PQRS Measure Charge Sheet PQRS Narrative: Smoking Status Former smoker Scale Used Numeric (1 - 10) Hx Alcohol Use (MH) No Home Medications: Ambulatory Orders Albuterol Nebulized [Ventolin Nebulized] 2.5 mg INHALATION RT-Q4H PRN 11/15/14 Albuterol Sulfate [Proventil Hfa] 1 - 2 puff PO RT-Q4H PRN 11/15/14 Cyclobenzaprine [Flexeril] 5 mg PO HS 01/27/20 Diclofenac Sodium Gel [Voltaren Gel] 4 gm TOPICAL QID PRN 05/10/20 Escitalopram [Lexapro] 20 mg PO DAILY 05/10/20 Ibuprofen [Motrin] 600 mg PO Q6HR PRN 05/10/20 Lidocaine 5% Patch [Lidoderm] 1 patch TOPICAL DAILY PRN 05/10/20 Gabapentin [Neurontin] 300 mg PO BID 05/26/20 Controlled Substance Measures - Controlled Substance Measures Is patient prescribed a controlled substance at discharge?: No
== END | disposition home or self-care (01) ==
LOC: PNWHC3 12:33
PROVIDERS: ATTEND Anesthesiology
DX: M79.606 Pain in leg, unspecified (principal); M54.5 Low back pain; M79.18 Myalgia, other site; Z87.891 Personal history of nicotine dependence; Z79.899 Other long term (current) drug therapy
CPT/HCPCS: 99211

== ENCOUNTER 2020-06-02 09:23 | Day surgery (SDC) | payer OTHER ==
[2020-06-01 09:52] VITALS: BMI 23.7
[2020-06-02 09:44] VITALS: TEMP 97.8
[2020-06-02] MEDS ORDERED: LACTATED RINGERS 1,000 ML IV ONE (09:45)
[2020-06-02] MEDS ORDERED: LIDOCAINE 1% (10MG/ML) FOR IV START INTRADERMA ONE (09:45)
[2020-06-02] MEDS ORDERED: fentaNYL (PF) 50 MCG/ML 2 ML AMP ONE (10:04)
[2020-06-02] MEDS ORDERED: LIDOCAINE 1% INJ 10MG/ML (20 ML MDV) ONE (10:04)
[2020-06-02] MEDS ORDERED: MIDAZOLAM 2 MG/2 ML VIAL ONE (10:04)
[2020-06-02] MEDS ORDERED: ROPIVACAINE 5MG/ML 20ML VIAL ONE (10:04)
[2020-06-02] MEDS ORDERED: TRIAMCINOLONE ACETONIDE 40 MG/ML 1 ML VIAL ONE (10:04)
--- NOTE | 2020-06-02 10:34 | P.PCN ---
Date of Procedure: 06/02/20 Surgeon: Beatrice Sanchez Pathology: none sent Condition: stable Disposition: PACU Description of Procedure: PREOPERATIVE DIAGNOSIS: Lumbar spondylosis without myelopathy POSTOPERATIVE DIAGNOSIS: Lumbar spondylosis without myelopathy PROCEDURES : Bilateral Radiofrequency thermocoagulation L4-L5, and L5-S1 medial branch, with fluoroscopic guidance ANESTHESIA: IV moderate conscious sedation with versed and fentanyl and local infiltration with lidocaine 1% 5 ml Physician:Beatrice Sanchez MD EBL: Minimal PROCEDURE INDICATION: The patient with low back pain secondary to lumbar facet arthropathy who had more than 50% relief of her pain with previous diagnostic lumbar medial branch block with bupivacaine. PROCEDURE DESCRIPTION / TECHNIQUE: The patient was seen and identified in the preoperative area. Risks, benefits, complications, including but not limited to risk of infection ,bleeding , allergic reactions to the medications and no complete pain relief , and alternatives were discussed with the patient, the patient agreed to proceed with the procedure and signed the consent. IV was started. Vital signs remained stable throughout the procedure. Patient was taken to the OR and time out was completed. The patient was placed in the prone position on the procedure table. The lumber area was prepped and draped in the usual sterile fashion. . Vital signs were closely monitored during the procedure .IV sedation was used during the procedure to decrease patients anxiety. The target points were identified as follows: For the L5-S1 level which corresponds to the dorsal ramus of L5 the target point was at the superior medial aspect of the sacral ala on the Rt side of the spine on the AP view of fluoroscopy and for the L3, and L4 medial branches the target points were at the connection between the transverse process and the superior articular process of L4, and L5 vertebra respectively on the Rt oblique view of fluoroscopy. skin was marked, and localized with 1% lidocaineat these points. Subsequently, an 18 -rm radiofrequency needles with a 10-mm curved active tips were advanced guided by fluoroscopy to each of the target points mentioned above in a superior medial direction to get the active tips as parallel as possible to the medial branches tracks. AP, oblique, and lateral views of fluoroscopy were used to verify needle tips position. The same procedure was repeated on the left side Each level then underwent motor testing at 2.5 Hz and 0 to 3 volt with local stimulation, but no radicular symptoms down the legs. I then injected 1 mL of lidocaine 1% in each needle before starting radiofrequency thermocoagulation at 80 degrees celsius for 90 seconds. After that I injected 1 ml of PF Marcaine 0.5%(3 mls) with 40 mg of Kenalog, 1 mL of this mixture was given in each needle before taking the needles out intact. At the end of the procedure, the skin was cleansed and bandages were applied. A copy of needle placement fluoroscopy was saved on the C-arm machine. COMPLICATIONS: No acute complications. DISPOSITION / PLANS: The patient was placed in a supine position and transferred to the recovery area in a stable condition for observation and was discharged from the recovery room after meeting discharge criteria. Home discharge instructions given to the patient by the staff. The patient was reexamined prior to discharge. The patient will schedule a follow up in the clinic in 2-4 weeks.
[2020-06-02 10:44] VITALS: RESP 16
[2020-06-02] MEDS ORDERED: IV FLUID CONTINUATION 1,000 ML IV ONE (10:44)
--- NOTE | 2020-06-02 10:56 | FL ---
EXAMINATION TYPE: FL guided pain mgmt statistic DATE OF EXAM: 06/02/2020 CLINICAL HISTORY: Low back pain. TECHNIQUE: Fluoroscopy. COMPARISON: None. FINDINGS: Fluoroscopic guidance was provided during pain relief procedure performed by Dr. Sanchez . A total of 20 seconds of fluoroscopic time was utilized during the procedure and 10 spot images are acquired. Images acquired shows needle localization at multiple levels in the lumbar spine. IMPRESSION: As Above.
[2020-06-02 10:59] VITALS: BP 151/90; PULSE 64
== END 2020-06-02 11:12 | disposition home or self-care (01) ==
LOC: ORPAIN 09:23
PROVIDERS: ATTEND Anesthesiology
DX: M47.816 Spondylosis without myelopathy or radiculopathy, lumbar region (principal); G43.909 Migraine, unspecified, not intractable, without status migrainosus; Z88.8 Allergy status to other drugs, medicaments and biological substances; Z79.1 Long term (current) use of non-steroidal anti-inflammatories (NSAID)
CPT/HCPCS: 64635; 64636; J2250; J3301; J2001; J3010; J2795; 99152; 99153

== ENCOUNTER → 2020-06-19 | Outpatient (CLI) | payer OTHER ==
[2020-06-19 12:53] VITALS: BP 134/92; PULSE 101; RESP 18; TEMP 97.6
--- NOTE | 2020-06-19 20:36 | P.PN ---
Subjective Progress Note Date: 06/19/20 This is from office for this 59 years old male with a chronic history of severe low back pain is thought to June 2019, the patient diagnosed with lumbar degenerative disc disease ,.and lumbar spondylosis with lumbar facet arthropathy, previously we have done lumbar epidural steroid injections 2, patient continued to have severe low back pain, and later on was followed with RFA of the medial branch lumbar area, patient continued to have severe low back pain and the pain is constant and increases with any activity interfere with the quality of life, patient is not able to function or do activities of daily living secondary to an intensity of the pain, he continued to use Motrin when necessary and Voltaren gel R) and he continue to use Neurontin 300 mg twice a day and Flexeril when necessary, patient is able to do physical therapy secondary to the pain Objective - Vital Signs Vital signs: Vital Signs Temp 97.6 F 06/19/20 12:38 Pulse 101 H 06/19/20 12:38 Resp 18 06/19/20 12:38 BP 134/92 06/19/20 12:38 Pulse Ox 98 06/19/20 12:38 - Exam Physical Examinations : -Constitutiona : Cooperative , not in acute distress . -HEENT : nech : supple , no Lymphadenopathy , normal thyroid size . : eyes : no ptosis , no icterus, no photophobia . - neurologic : Cranial nerve II to XII intact , no focal neurological deffecit . -psychatric : alert , oriented X 3 , appropriate affect , intact judgment and insight . -Lymphatic : no Lymphadenopathy . - musculoskeltal : Lumber spine moter stegnth lower extremities ,thigh and legs 5/5 Right side , 5/5 Left side deep tendon reflexes : normal Knee Jerk , normal ankle Jerk lumber facet Loading Test =positive Right , positive Left Range of motion of the lumbar spine Flexion 30 degrees, extension 10 degrees strait leg raising test = positive at 30 degree Fabere test= positive Right , and positive LT . Sever tenderness over the Sacroiliac joint on the Right , and Left sides Gaenslen test= positive right ,and positive left . Seated flexion test= positive right ,and positive Left . Generalized tenderness in the lumbar paraspinal muscles Assessment and Plan Plan: Assessment and plan=1-lumbar degenerative disc disease. 2-lumbar spondylosis with lumbar facet arthropathy. The patient had no benefit from lumbar epidural steroid injections X2 The patient had no benefit from RFA of the medial branch lumbar area. Patient could benefit from physical therapy evaluation and treatment, The patient will follow up with Dr. Arrieta neurosurgery for evaluation for possible surgical interventions - PQRS measures = - Patient's medications are documented in the chart. -Tobacco use is positive and counseling.Given. -Patient's has not received pneumococcal vaccine. -Advanced care planning discussed, patient not eligible. -Opiate contract signed. -Pain positive and follow-up visit/procedure is scheduled. -Patient's blood pressure measured [ 134/92 ] , and documented in the record ,and patient will follow up with the primary care. -Patient's weight was measured and body mass index [ 25.1 ]within the normal limits and counseling was done. and patient instructed to follow-up with the primary care physician. -Patient was not identified as an unhealthy alcohol user Time with Patient: Less than 30
== END | disposition home or self-care (01) ==
LOC: PNWHC3 12:29
PROVIDERS: ATTEND Specialist
DX: M51.36 Other intervertebral disc degeneration, lumbar region (principal); M47.816 Spondylosis without myelopathy or radiculopathy, lumbar region
CPT/HCPCS: 99211

== ENCOUNTER → 2020-10-11 | Outpatient (CLI) | payer OTHER ==
[2020-10-11 09:56] VITALS: BP 121/88; PULSE 107; RESP 16; TEMP 97.9
--- NOTE | 2020-10-11 10:02 | P.PN ---
Subjective Progress Note Date: 10/11/20 This is follow up visit for this 59 years old male with a chronic history of severe low back pain , the pain is constant ,increases with any activity, interfere with the quality of life, patient is not able to function, or do activities of daily living secondary to an intensity of the pain, he continued t o use Motrin when necessary and Voltaren gel R) and he continue to use Neurontin 300 mg twice a day, and Flexeril when necessary, with pain in the low back area is constant , he denies any fever or night sweats Physical Examinations : Physical Examinations : -Constitutiona : Cooperative , not in acute distress . -HEENT : nech : supple , no Lymphadenopathy , normal thyroid size . : eyes : no ptosis , no icterus, no photophobia . - neurologic : Cranial nerve II to XII intact , no focal neurological deffecit . -psychatric : alert , oriented X 3 , appropriate affect , intact judgment and insight . -Lymphatic : no Lymphadenopathy . - musculoskeltal : Lumber spine moter stegnth lower extremities ,thigh and legs 5/5 Right side , 5/5 Left side deep tendon reflexes : normal Knee Jerk , normal ankle Jerk lumber facet Loading Test =positive Right , positive Left Range of motion of the lumbar spine Flexion 30 degrees, extension 10 degrees strait leg raising test = positive at 45 degree Fabere test= positive Right , and positive LT . Sever tenderness over the Sacroiliac joint on the Right , and Left sides Gaenslen test= positive right ,and positive left . Seated flexion test= positive right ,and positive Left . Distraction test= positive bilaterally Sacroiliac compression test= positive bilaterally Assessment and Plan Plan: Assessment and plan=1-lumbar degenerative disc disease. 2-lumbar spondylosis with lumbar facet arthropathy 3-bilateral sacroiliitis. The patient had no benefit from lumbar epidural steroid injections X2 The patient had no benefit from RFA of the medial branch lumbar area. Patient could benefit from bilateral sacroiliac joint steroid injection Recommend continue his current medication Neurontin, flexeril , Voltaren gel, Motrin - PQRS measures = - Patient's medications are documented in the chart. -Tobacco use is negative and counseling.Given. -Patient's has not received pneumococcal vaccine. -Advanced care planning discussed, patient not eligible. -Opiate contract not signed. -Pain positive and follow-up visit/procedure is scheduled. -Patient's blood pressure measured [121/88 ] , and documented in the record ,and patient will follow up with the primary care. -Patient's weight was measured and body mass index [ 25 ] within the normal limits and counseling was done. and patient instructed to follow-up with the primary care physician. -Patient was not identified as an unhealthy alcohol user Objective - Vital Signs Vital signs: Vital Signs Temp 97.9 F 10/11/20 09:43 Pulse 107 H 10/11/20 09:43 Resp 16 10/11/20 09:43 BP 121/88 10/11/20 09:43 Pulse Ox 99 10/11/20 09:43 Intake & Output 10/10/20 10/11/20 10/11/20 18:59 06:59 18:59 Weight 86.183 kg
== END | disposition home or self-care (01) ==
LOC: PNWHC3 09:20
PROVIDERS: ATTEND Specialist
DX: M51.36 Other intervertebral disc degeneration, lumbar region (principal); M47.816 Spondylosis without myelopathy or radiculopathy, lumbar region; M46.1 Sacroiliitis, not elsewhere classified
CPT/HCPCS: 99211

== ENCOUNTER 2020-11-16 08:58 | Day surgery (SDC) | payer OTHER ==
[2020-11-14 10:48] VITALS: BMI 24.4
[2020-11-16 09:18] VITALS: RESP 16; TEMP 97.1
[2020-11-16] MEDS ORDERED: LIDOCAINE 1% (10MG/ML) FOR IV START INTRADERMA ONE (09:24)
[2020-11-16] MEDS ORDERED: fentaNYL (PF) 50 MCG/ML 2 ML AMP ONE (09:50)
[2020-11-16] MEDS ORDERED: MIDAZOLAM 2 MG/2 ML VIAL ONE (09:50)
[2020-11-16] MEDS ORDERED: ROPIVACAINE 5MG/ML 20ML VIAL ONE (09:50)
[2020-11-16] MEDS ORDERED: TRIAMCINOLONE ACETONIDE 40 MG/ML 1 ML VIAL ONE (09:50)
--- NOTE | 2020-11-16 10:02 | P.PCN ---
Date of Procedure: 11/16/20 Surgeon: Beatrice Sanchez Pathology: none sent Condition: stable Disposition: PACU Description of Procedure: Description of Procedure: Preoperative diagnoses= bilateral sacroiliac joint dysfunction and sacroiliitis Postoperative diagnoses= same as preoperative diagnosis. Procedure= bilateral sacroiliac joint steroid injection under fluoroscopic guidance. Anesthesia= local anesthesia with lidocaine 1% and IV moderate conscious sedation with fentanyl and Versed Estimated blood loss=minimal. Procedure indication= the patient had a history of severe chronic low back pain, diagnosed with sacroiliitis and lumbar sacral facet arthropathy unresponsive to conservative treatment. Procedure description= the patient was seen and identified in the preoperative holding area, risks and benefits and alternative of the procedure and possible complications discussed with the patient, patient signed the consent. an IV was started, and vital signs were monitored and were stable throughout the procedure, patient was placed in the prone position or table and the lumbosacral area was prepped and draped with a sterile fashion, vital signs were closely monitored during the procedure.The sacroiliac joint was identified on the AP view of fluoroscopy then the C-arm was tilted to the contralateral oblique position to superimpose the anterior and posterior joint lines on each other and to have a unified joint line with the target point at the inferior one third of this line. I used 22-gauge 3-1/2 inch Quincke spinal needle for this procedure and after getting into the sacroiliac joint I injected 20 mg of Kenalog +2 MLS of Ropivacaine 0.5%. The same procedure was repeated on the opposite side in the same manner. Patient tolerated the procedure well without any complication, The patient returned to supine position after the back was cleaned and a Band- Aid applied, the patient transported to recovery room in stable condition and he was monitored for 30 minutes before she was discharged home in stable condition . patient will follow up with the pain clinic in a few weeks. A copy of the needle placement was saved to the C-arm machine.
[2020-11-16] MEDS ORDERED: IV FLUID CONTINUATION 1,000 ML IV ONE (10:08)
[2020-11-16 10:29] VITALS: BP 111/71; PULSE 61
--- NOTE | 2020-11-16 13:04 | FL ---
Fluoroscopy HISTORY: Pain 17 seconds fluoroscopy time supplied to the referring clinician. 2 intraoperative C-arm images docum ent the procedure. See dictated report from anesthesia.
== END 2020-11-16 10:38 | disposition home or self-care (01) ==
LOC: ORPAIN 08:58
PROVIDERS: ATTEND Anesthesiology
DX: M46.1 Sacroiliitis, not elsewhere classified (principal); M53.3 Sacrococcygeal disorders, not elsewhere classified; G89.29 Other chronic pain; M47.816 Spondylosis without myelopathy or radiculopathy, lumbar region; Z88.8 Allergy status to other drugs, medicaments and biological substances
CPT/HCPCS: J2250; J3301; J3010; J2795; G0260

== ENCOUNTER → 2020-12-18 | Outpatient (CLI) | payer OTHER ==
[2020-12-18 10:11] VITALS: BP 161/103; PULSE 80; RESP 18; TEMP 97.6
--- NOTE | 2020-12-18 10:25 | P.PN ---
Subjective Progress Note Date: 12/18/20 This is follow-up visit for this 60 years old male with history of severe and chronic low back pain is diagnosed with lumbar degenerative disc disease and lumbar spondylosis with lumbar facet arthropathy without myelopathy and bilateral sacroiliitis, previously we have done RFA of the medial branch lumbar area, and recently we did bilateral sacroiliac joint steroid injection, she reported that he had significant improvement of his low back pain after the bilateral sacroiliac joint steroid injection his pain improved significantly and is able to ambulate, he denies any motor or sensory deficit he denies any fever or night sweats and there is no change in the bowel movement or urination Physical Examinations : -Constitutiona : Cooperative , not in acute distress . -HEENT : nech : supple , no Lymphadenopathy , normal thyroid size . : eyes : no ptosis , no icterus, no photophobia . - neurologic : Cranial nerve II to XII intact , no focal neurological deffecit . -psychatric : alert , oriented X 3 , appropriate affect , intact judgment and insight . -Lymphatic : no Lymphadenopathy . - musculoskeltal : Lumber spine moter stegnth lower extremities ,thigh and legs 5/5 Right side , 5/5 Left side deep tendon reflexes : normal Knee Jerk , normal ankle Jerk lumber facet Loading Test =positive Right , positive Left Range of motion of the lumbar spine Flexion 30 degrees, extension 10 degrees strait leg raising test = positive at 45 degree Fabere test= positive Right , and positive LT . Sever tenderness over the Sacroiliac joint on the Right , and Left sides Gaenslen test= positive right ,and positive left . Seated flexion test= positive right ,and positive Left . Distraction test= positive bilaterally Sacroiliac compression test= positive bilaterally Assessment and plan=1-lumbar spondylosis with lumbar facet arthropathy. 2-level degenerative disc disease. 3-bilateral sacroiliitis. Pain improved after bilateral sacroiliac joint steroid injections patient will follow up in the pain clinic when necessary She'll continue to use his current medications Lidoderm patch and Flexeril 5 mg daily at bedtime and Voltaren gel when necessary Patient is hypertensive and is advised to follow- up with the primary care GEORGE - PQRS measures = - Patient's medications are documented in the chart. -Tobacco use is negative and counseling.Given. -Patient's has not received pneumococcal vaccine. -Advanced care planning discussed, patient not eligible. -Opiate contract not signed. -Pain positive and follow-up visit/procedure is scheduled. -Patient's blood pressure measured [ 161/103 ] , and documented in the record ,and patient will follow up with the primary care. -Patient's weight was measured and body mass index [ 24.4 ] within the normal limits and counseling was done. and patient instructed to follow-up with the primary care physician. -Patient was not identified as an unhealthy alcohol user Objective - Vital Signs Vital signs: Vital Signs Temp 97.6 F 12/18/20 10:08 Pulse 80 12/18/20 10:08 Resp 18 12/18/20 10:08 BP 161/103 12/18/20 10:08 Pulse Ox 99 12/18/20 10:08
== END ==
LOC: PNWHC3 09:57
PROVIDERS: ATTEND Specialist
DX: M47.816 Spondylosis without myelopathy or radiculopathy, lumbar region (principal); M51.36 Other intervertebral disc degeneration, lumbar region; M46.1 Sacroiliitis, not elsewhere classified; Z87.891 Personal history of nicotine dependence; Z88.8 Allergy status to other drugs, medicaments and biological substances
CPT/HCPCS: 99211

== ENCOUNTER → 2021-06-11 | Outpatient (CLI) | payer OTHER ==
--- NOTE | 2021-06-11 12:28 | XR ---
EXAMINATION TYPE: XR foot complete RT DATE OF EXAM: 06/11/2021 COMPARISON: None HISTORY: Pain TECHNIQUE: 3 view right foot FINDINGS: No acute fracture or dislocation is evident. Soft tissues are normal. Joint spaces are pres erved. Follow up exams can be performed 7-10 days from acute trauma for continued pain. IMPRESSION: 1. Normal three-view right foot
== END | disposition home or self-care (01) ==
LOC: RADXRMAIN 12:06
PROVIDERS: ATTEND Internal Medicine
DX: M79.671 Pain in right foot (principal)

== ENCOUNTER → 2021-10-26 | Outpatient (CLI) | payer OTHER ==
--- NOTE | 2021-10-27 03:27 | MR ---
EXAMINATION TYPE: MR lumbar spine wo con DATE OF EXAM: 10/26/2021 COMPARISON: 08/09/2019 HISTORY: Low back pain that radiates down both legs for over 2 years. Multiplanar multiecho imaging of the lumbar spine without contrast. Lumbar vertebrae have normal alignment. There is mild decreased signal in this set of L3-4 and L4-5. No compression fracture. There is minimal posterior disc bulge at L3-4 and L1-2. There is development ally adequate spinal canal. No spinal stenosis. Lumbar nerve roots appear intact. The neural foramina are fairly well maintained. Sacroiliac joints are intact. IMPRESSION: Spondylotic changes. Minimal disc bulging as above. No spinal stenosis. No fracture. There is improve ment in the posterior disc bulging at L3-4 compared to the old exam.
== END | disposition home or self-care (01) ==
LOC: RADMRIMAIN 16:51
PROVIDERS: ATTEND Orthopaedic Surgery
DX: M47.26 Other spondylosis with radiculopathy, lumbar region (principal); M51.16 Intervertebral disc disorders with radiculopathy, lumbar region
CPT/HCPCS: 72148

== ENCOUNTER → 2021-11-12 | Outpatient (CLI) | payer OTHER ==
--- NOTE | 2021-11-13 06:10 | MR ---
EXAMINATION TYPE: MR pelvis wo con DATE OF EXAM: 11/12/2021 COMPARISON: None HISTORY: Lower back, buttock and bilateral hip pain. Multiplanar multiecho imaging of the pelvis without contrast. The pelvic ring is intact. No focal bone destruction. The proximal femurs and hip joints appear hugo l. No evidence of avascular necrosis. No free fluid in the pelvis. No sign of a pelvic mass. The blad ledyi distends smoothly. Prostate appears normal. No sign of pelvic lymphadenopathy. Sacroiliac joints appear normal. There is no inguinal hernia. No evidence of inguinal adenopathy. IMPRESSION: Negative MR scan of the pelvis.
== END | disposition home or self-care (01) ==
LOC: RADMRIMAIN 13:14
PROVIDERS: ATTEND Orthopaedic Surgery
DX: M54.50 Low back pain, unspecified (principal); M25.551 Pain in right hip; M25.552 Pain in left hip
CPT/HCPCS: 72195

== ENCOUNTER → 2022-07-09 | Outpatient (CLI) | payer MEDICARE ==
--- NOTE | 2022-07-09 13:25 | XR ---
EXAMINATION TYPE: XR lumbosacral spine min 4V DATE OF EXAM: 07/09/2022 Comparison: 02/08/2020 Clinical History: 61-year-old male M51.36 OTHER INTERVERTEBRAL DISC DEGENERATION, LUM Findings: 5 lumbar type vertebral bodies. There is a right L5 hemisacralization with assimilation joint that is mildly degenerative. Facet arthropathy lower lumbar spine. Vertebral body heights are preserved. Ali gnment is maintained. Mild multilevel degenerative disc disease throughout. Impression: 1. 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 2. Mild multilevel degenerative disc disease. 3. Facet arthropathy lower lumbar spine. No malalignment seen.
== END | disposition home or self-care (01) ==
LOC: RADXRMAIN 10:16
PROVIDERS: ATTEND Family Medicine
DX: M51.36 Other intervertebral disc degeneration, lumbar region (principal); M47.816 Spondylosis without myelopathy or radiculopathy, lumbar region
CPT/HCPCS: 72110

== ENCOUNTER 2022-10-10 13:43 | Emergency (ER) | payer MEDICARE, OTHER ==
[2022-10-10 14:02] VITALS: RESP 20
--- NOTE | 2022-10-10 15:12 | ED ---
URI HPI - General Source: patient, RN notes reviewed Mode of arrival: ambulatory Limitations: no limitations - History of Present Illness MD Complaint: cough, sore throat <Clare Soliz - Last Filed: 10/10/22 15:12> <Yarely Storm - Last Filed: 10/10/22 17:49> - General Chief Complaint: Upper Respiratory Infection Stated Complaint: cough, lightheaded, weakness Time Seen by Provider: 10/10/22 15:10 - History of Present Illness Initial Comments: This is a 61-year-old male who presents to the emergency department for concerns of Covid. His was just hospitalized for COVID-19 and he is now starting to develop coughing, a sore throat, and weakness. Unsure if he has had fevers at home. Patient is not vaccinated. (Clare Soliz) I agree with the above HPI with the exception of sore throat patient denies during my evaluation states it is just dry. Reports headache. He denies chest pain, shortness of breath. He does have some nausea without vomiting. No abdominal pain. (Yarely Storm) - Related Data Home Medications Medication Instructions Recorded Confirmed Albuterol Nebulized [Ventolin 2.5 mg INHALATION RT-Q4H PRN 11/15/14 12/18/20 Nebulized] Cyclobenzaprine [Flexeril] 5 mg PO HS 01/27/20 12/18/20 Diclofenac Sodium Gel [Voltaren 4 gm TOPICAL QID PRN 05/10/20 12/18/20 Gel] Escitalopram [Lexapro] 20 mg PO DAILY 05/10/20 12/18/20 Ibuprofen [Motrin] 600 mg PO Q6HR PRN 05/10/20 12/18/20 Lidocaine 5% Patch [Lidoderm] 1 patch TOPICAL DAILY PRN 05/10/20 12/18/20 Gabapentin [Neurontin] 300 mg PO TID 05/26/20 12/18/20 Previous Rx's Medication Instructions Recorded Albuterol Nebulized [Ventolin 2.5 mg INHALATION Q6H 6 Days #75 ml 10/10/22 Nebulized] Ibuprofen [Motrin] 800 mg PO Q8HR PRN #30 tab 10/10/22 Ondansetron Odt [Zofran Odt] 4 mg PO Q8HR PRN #10 tab 10/10/22 Allergies Allergy/AdvReac Type Severity Reaction Status Date / Time rosuvastatin calcium Allergy Severe PAIN/NUMBNESS,"FEELS Verified 12/13/20 16:50 [From Crestor] LIKE HE IS GOING TO " Unsopxd-QWY-SrY Reductase Allergy PAIN/NUMBNESS,"FEELS Verified 12/13/20 16:50 Inhibitor LIKE HE IS [Qnjufjm-Lde-Mah Reductase GOING TO Inhibitor] " Review of Systems ROS Other: All systems not noted in ROS Statement are negative. <Clare Soliz - Last Filed: 10/10/22 15:12> ROS Other: All systems not noted in ROS Statement are negative. <Yarely Storm - Last Filed: 10/10/22 17:49> ROS Statement: Those systems with pertinent positive or pertinent negative responses have been documented in the HPI. Past Medical History Past Medical History: Asthma, Hyperlipidemia, Hypertension, Osteoarthritis (OA) Additional Past Medical History / Comment(s): seasonal allergies, hx hiatal hernia, degenerative disks, arthritis lower back and neck, History of Any Multi-Drug Resistant Organisms: None Reported Past Surgical History: Hernia Repair Additional Past Surgical History / Comment(s): pain procedures Past Anesthesia/Blood Transfusion Reactions: No Reported Reaction Past Psychological History: Anxiety, Depression Smoking Status: Former smoker Past Alcohol Use History: None Reported Past Drug Use History: Marijuana - Past Family History Mother Family Medical History: Pulmonary Embolus <Clare Soliz - Last Filed: 10/10/22 15:12> General Exam Limitations: no limitations <Clare Soliz - Last Filed: 10/10/22 15:12> General appearance: alert, in no apparent distress Head exam: Present: atraumatic, normocephalic, normal inspection Eye exam: Present: normal appearance, PERRL, EOMI. Absent: scleral icterus, conjunctival injection, periorbital swelling ENT exam: Present: normal oropharynx Respiratory exam: Present: normal lung sounds bilaterally. Absent: respiratory distress, wheezes, rales, rhonchi, stridor Cardiovascular Exam: Present: regular rate, normal rhythm, normal heart sounds. Absent: systolic murmur, diastolic murmur, rubs, gallop, clicks Neurological exam: Present: alert, oriented X3, CN II-XII intact Psychiatric exam: Present: normal affect, normal mood Skin exam: Present: warm, dry, intact, normal color. Absent: rash <Yarely Storm - Last Filed: 10/10/22 17:49> - General Exam Comments Initial Comments: Visual Physical Exam Vital signs reviewed General: Well-appearing, nontoxic, no acute distress. Head: Normocephalic, atraumatic Eyes: PERRLA, EOMI ENT: Airway patent Chest: Nonlabored breathing Skin: No visual rash, normal skin tone Neuro: Alert and oriented 3 Musculoskeletal: No gross abnormalities (Clare Soliz) Course Vital Signs 10/10/22 10/10/22 13:59 17:26 Temperature 101.1 F H 98.6 F Pulse Rate 107 H 110 H Respiratory 20 20 Rate Blood Pressure 117/79 111/75 O2 Sat by Pulse 97 97 Oximetry Medical Decision Making <Yarely Storm - Last Filed: 10/10/22 17:49> - Medical Decision Making Was pt. sent in by a medical professional or institution (, PA, DESIGN QUALITY ENGINEER, urgent care, hospital, or [place] [facility] facility...) When possible be specific @ -No Did you speak to anyone other than the patient for history (EMS, parent, family, police, friend...)? What history was obtained from this source @ -No Did you review nursing and triage notes (agree or disagree)? Why? @ -I reviewed and agree with nursing and triage notes Were old charts reviewed (outside hosp., previous admission, EMS record, old EKG, old radiological studies, urgent care reports/EKG's, [place] [facility] facility records)? Report findings @ -No old charts were reviewed Differential Diagnosis (chest pain, altered mental status, abdominal pain women, abdominal pain men, vaginal bleeding, weakness, fever, dyspnea, syncope, headache, dizziness, GI bleed, back pain, seizure, CVA, palpatations, mental health)? @ -URI, sinusitus,strep pharyngitis, viral pharyngitis, pneumonia, bronchitis- this list is not meant to be all-inclusive EKG interpreted by me (3pts min.). @ -As above X-rays interpreted by me (1pt min.). @ -None done CT interpreted by me (1pt min.). @ -None done U/S interpreted by me (1pt. min.). @ -None done What testing was considered but not performed or refused? (CT, X-rays, U/S, labs)? Why? @ -Considered x-ray imaging however patient does not have chest pain or shortness breath. He does not have productive cough. No abnormal lung sounds. What meds were considered but not given or refused? Why? @ -None Did you discuss the management of the patient with other professionals (professionals i.e. , PA, DESIGN QUALITY ENGINEER, lab, RT, psych nurse, social welfare administrator, shirring machine operator automatic, teacher, equal employment opportunity officer, field nurse case manager)? Give summary @ -No Was smoking cessation discussed for >3mins.? @ -No Was critical care preformed (if so, how long)? @ -No Were there social determinants of health that impacted care today? How? (Homelessness, low income, unemployed, alcoholism, drug addiction, transportation, low edu. Level, literacy, decrease access to med. care, long-term, rehab)? @ -No Was there de-escalation of care discussed even if they declined (Discuss DNR or withdrawal of care, Hospice)? DNR status @ -No What co-morbidities impacted this encounter? (DM, HTN, Smoking, COPD, CAD, Cancer, CVA, ARF, Chemo, Hep., AIDS, mental health diagnosis, sleep apnea, morbid obesity)? @ -None Was patient admitted / discharged? Hospital course, mention meds given and route, prescriptions, significant lab abnormalities, going to OR and other pertinent info. @ -Patient presenting with upper respiratory symptoms. COVID-19 is detected. Patient does have a fever which is treated in the emergency department. He was given Zofran for nausea he is encouraged to increase fluid intake as tolerated. He'll be discharged with symptomatic management. Undiagnosed new problem with uncertain prognosis? @ -No Drug Therapy requiring intensive monitoring for toxicity (Heparin, Nitro, Insulin, Cardizem)? @ -No Were any procedures done? @ -No Diagnosis/symptom? @ -COVID-19 Acute, or Chronic, or Acute on Chronic? @ -Acute Uncomplicated (without systemic symptoms) or Complicated (systemic symptoms)? @ -complicated Side effects of treatment? @ -No Exacerbation, Progression, or Severe Exacerbation? @ -No Poses a threat to life or bodily function? How? (Chest pain, USA, CT, pneumonia, PE, COPD, DKA, ARF, appy, cholecystitis, CVA, Diverticulitis, Homicidal, Suicidal, threat to staff... and all critical care pts) @ -No Dr. Grayson is my attending (Yarely Storm) - Lab Data Lab Results 10/10/22 Range/Units 15:58 Influenza Type A (PCR) Not Detected (Not Detectd) Influenza Type B (PCR) Not Detected (Not Detectd) RSV (PCR) Not Detected (Not Detectd) SARS-CoV-2 (PCR) Detected A (Not Detectd) Disposition <Clare Soliz - Last Filed: 10/10/22 15:12> Is patient prescribed a controlled substance at d/c from ED?: No Time of Disposition: 17:03 <Yarely Storm - Last Filed: 10/10/22 17:49> Clinical Impression: COVID-19 Disposition: HOME SELF-CARE Condition: Good Instructions (If sedation given, give patient instructions): COVID-19 (Coronavirus Disease 2019) (ED) Additional Instructions: Take medication as directed. Increase fluid intake. Follow-up with primary care provider in 1 to 2 days. Quarantine at home for 5 days. Return to emergency department if you experience new, concerning, or worsening symptoms Prescriptions: Ibuprofen [Motrin] 800 mg PO Q8HR PRN #30 tab PRN Reason: Pain Ondansetron Odt [Zofran Odt] 4 mg PO Q8HR PRN #10 tab PRN Reason: Nausea Referrals: Aristides Morfin MD [Primary Care Provider] - 1-2 days
[2022-10-10] MEDS ORDERED: IBUPROFEN 800 MG TAB PO STA (15:42)
[2022-10-10] MEDS ORDERED: ALBUTEROL HFA INHALER INHALATION STA (15:47)
[2022-10-10] MEDS ORDERED: ONDANSETRON ODT 4 MG TAB PO STA (15:47)
[2022-10-10 17:30] VITALS: BP 111/75; PULSE 110; TEMP 98.6
== END 2022-10-10 17:31 | disposition home or self-care (01) ==
LOC: EC 13:43
DX: U07.1 COVID-19 (principal); I10 Essential (primary) hypertension; J45.909 Unspecified asthma, uncomplicated; F41.9 Anxiety disorder, unspecified; F32.A Depression, unspecified; F12.90 Cannabis use, unspecified, uncomplicated; Z79.899 Other long term (current) drug therapy; Z87.891 Personal history of nicotine dependence; Z88.8 Allergy status to other drugs, medicaments and biological substances; Z20.822 Contact with and (suspected) exposure to COVID-19
CPT/HCPCS: 87636; 94640; 99283

== ENCOUNTER 2022-10-13 09:35 | Observation (INO) | payer MEDICARE ==
[2022-10-13] MEDS ORDERED: DIPH,PERTUS(ACELL)TETVAC-LF 0.5 ML VIAL IM ONE (09:47)
[2022-10-13] MEDS ORDERED: TOPICAL SKIN ADHESIVE 1 EACH AMP TOPICAL ONE (09:47)
[2022-10-13] MEDS ORDERED: ONDANSETRON 4 MG/2 ML VIAL IVP STA (09:48)
[2022-10-13] MEDS ORDERED: SODIUM CHLORIDE 0.9% 1,000 ML IV STA (09:48)
[2022-10-13] MEDS ORDERED: FAMOTIDINE 20 MG/2 ML VIAL IV STA (09:48)
--- NOTE | 2022-10-13 09:50 | ED ---
General Adult HPI - General Chief complaint: Syncope Stated complaint: syncope Time Seen by Provider: 10/13/22 09:38 Source: patient, EMS, RN notes reviewed Mode of arrival: EMS Limitations: no limitations - History of Present Illness Initial comments: Patient is a pleasant 61-year-old male presenting to the emergency department with syncopal episode. Episode occurred just prior to arrival. Patient was having diarrhea at the time. Patient did have associated nausea. Patient has been having diarrhea for several days. Patient has been having nausea and decreased appetite for weeks. Patient was diagnosed with COVID-19 infection just around 4 days ago. Patient has had some mild cough and dyspnea. No chest pain. No back pain. Patient did strike his chin when he fell. Unclear last tetanus immunization. - Related Data Home Medications Medication Instructions Recorded Confirmed Albuterol Nebulized [Ventolin 2.5 mg INHALATION RT-Q4H PRN 11/15/14 12/18/20 Nebulized] Cyclobenzaprine [Flexeril] 5 mg PO HS 01/27/20 12/18/20 Diclofenac Sodium Gel [Voltaren 4 gm TOPICAL QID PRN 05/10/20 12/18/20 Gel] Escitalopram [Lexapro] 20 mg PO DAILY 05/10/20 12/18/20 Ibuprofen [Motrin] 600 mg PO Q6HR PRN 05/10/20 12/18/20 Lidocaine 5% Patch [Lidoderm] 1 patch TOPICAL DAILY PRN 05/10/20 12/18/20 Gabapentin [Neurontin] 300 mg PO TID 05/26/20 12/18/20 Previous Rx's Medication Instructions Recorded Albuterol Nebulized [Ventolin 2.5 mg INHALATION Q6H 6 Days #75 ml 10/10/22 Nebulized] Ibuprofen [Motrin] 800 mg PO Q8HR PRN #30 tab 10/10/22 Ondansetron Odt [Zofran Odt] 4 mg PO Q8HR PRN #10 tab 10/10/22 Allergies Allergy/AdvReac Type Severity Reaction Status Date / Time rosuvastatin calcium Allergy Severe PAIN/NUMBNESS,"FEELS Verified 12/13/20 16:50 [From Crestor] LIKE HE IS GOING TO " Fmtumtc-VEU-OqI Reductase Allergy PAIN/NUMBNESS,"FEELS Verified 12/13/20 16:50 Inhibitor LIKE HE IS [Aycvezg-Ldf-Hdh Reductase GOING TO Inhibitor] " Review of Systems ROS Statement: Those systems with pertinent positive or pertinent negative responses have been documented in the HPI. ROS Other: All systems not noted in ROS Statement are negative. Constitutional: Reports: chills. Denies: fever Eyes: Denies: eye pain ENT: Denies: ear pain Respiratory: Reports: as per HPI Cardiovascular: Denies: chest pain Endocrine: Denies: fatigue Gastrointestinal: Reports: nausea, diarrhea. Denies: abdominal pain Genitourinary: Denies: dysuria Musculoskeletal: Denies: back pain Skin: Denies: rash Neurological: Denies: headache, weakness Past Medical History Past Medical History: Asthma, Hyperlipidemia, Hypertension, Osteoarthritis (OA) Additional Past Medical History / Comment(s): seasonal allergies, hx hiatal hernia, degenerative disks, arthritis lower back and neck, History of Any Multi-Drug Resistant Organisms: None Reported Past Surgical History: Hernia Repair Additional Past Surgical History / Comment(s): pain procedures Past Anesthesia/Blood Transfusion Reactions: No Reported Reaction Past Psychological History: Anxiety, Depression Smoking Status: Former smoker Past Alcohol Use History: None Reported Past Drug Use History: Marijuana - Past Family History Mother Family Medical History: Pulmonary Embolus General Exam Limitations: no limitations General appearance: alert, in no apparent distress Head exam: Present: atraumatic, normocephalic Eye exam: Present: normal appearance, PERRL, EOMI ENT exam: Present: normal oropharynx Neck exam: Present: normal inspection. Absent: tenderness Respiratory exam: Present: normal lung sounds bilaterally Cardiovascular Exam: Present: regular rate, normal rhythm GI/Abdominal exam: Present: soft, normal bowel sounds. Absent: distended, tenderness, guarding, rebound, rigid Extremities exam: Present: normal inspection, full ROM. Absent: tenderness Neurological exam: Present: alert, oriented X3, CN II-XII intact. Absent: motor sensory deficit Expanded Neurological exam: Present: protecting the airway Speech: Present: fluid speech Motor strength exam: RUE: 5, LUE: 5, RLE: 5, LLE: 5 Eye Response: (4) open spontaneously Motor Response: (6) obeys commands Verbal Response: (5) oriented Psychiatric exam: Present: normal affect, normal mood Skin exam: Present: other (Chin laceration) Course Vital Signs 04/16/23 09:38 Temperature 97.8 F Pulse Rate 66 Respiratory 18 Rate Blood Pressure 111/78 O2 Sat by Pulse 100 Oximetry EKG Findings - EKG Results: EKG: interpreted by ERMD, sinus rhythm, normal axis, normal QRS, normal ST/T Procedures - Laceration Laceration #1 Consent Obtained: verbal consent Indication: laceration Site: face Size (cm): 3 Description: linear Depth: simple, single layer Pre-repair: wound explored, irrigated extensively Type of Sutures: other (Closed with tissue adhesive) Patient Tolerated Procedure: well, no complications Medical Decision Making - Medical Decision Making Was pt. sent in by a medical professional or institution (, PA, JET BLADE POLISHER, urgent care, hospital, or care home...) When possible be specific @ -No Did you speak to anyone other than the patient for history (EMS, parent, family, police, friend...)? What history was obtained from this source @ -EMS helps provide additional history Did you review nursing and triage notes (agree or disagree)? Why? @ -I reviewed and agree with nursing and triage notes Were old charts reviewed (outside hosp., previous admission, EMS record, old EKG, old radiological studies, urgent care reports/EKG's, care home records)? Report findings @ -No old charts were reviewed Differential Diagnosis (chest pain, altered mental status, abdominal pain women, abdominal pain men, vaginal bleeding, weakness, fever, dyspnea, syncope, headache, dizziness, GI bleed, back pain, seizure, CVA, palpatations, mental health)? @ -Differential Syncope: Valvular disease, hypertrophic cardiomyopathy, pulmonary embolism, tamponade, tachycardia, bradycardia, NC, hypovolemia, hemorrhage, dissection, anemia, intracranial hemorrhage, seizure, hypoglycemia, carbon monoxide poisoning, this is not meant to be an all-inclusive list. EKG interpreted by me (3pts min.). @ -As above X-rays interpreted by me (1pt min.). @ -Chest x-ray shows no acute process CT interpreted by me (1pt min.). @ -Report reviewed U/S interpreted by me (1pt. min.). @ -None done What testing was considered but not performed or refused? (CT, X-rays, U/S, labs)? Why? @ -None What meds were considered but not given or refused? Why? @ -None Did you discuss the management of the patient with other professionals (professionals i.e. DrUmesh, PA, JET BLADE POLISHER, lab, RT, psych nurse, nephrology social worker, levers lace machine operator, teacher, senior escrow officer, case monitor)? Give summary @ -Case was discussed with Dr. Eaton, who will admit covering Dr. Morfin. Was smoking cessation discussed for >3mins.? @ -No Was critical care preformed (if so, how long)? @ -No Were there social determinants of health that impacted care today? How? (Homelessness, low income, unemployed, alcoholism, drug addiction, transportation, low edu. Level, literacy, decrease access to med. care, halfway, rehab)? @ -No Was there de-escalation of care discussed even if they declined (Discuss DNR or withdrawal of care, Hospice)? DNR status @ -No What co-morbidities impacted this encounter? (DM, HTN, Smoking, COPD, CAD, Cancer, CVA, ARF, Chemo, Hep., AIDS, mental health diagnosis, sleep apnea, morbi d obesity)? @ -None Was patient admitted / discharged? Hospital course, mention meds given and route, prescriptions, significant lab abnormalities, going to OR and other pertinent info. @ -Patient reevaluated and is not comfortable with discharge home. Case was discussed with Dr. Eaton will admit covering Dr. Morfin. Patient updated on re sults and plan. Undiagnosed new problem with uncertain prognosis? @ -No Drug Therapy requiring intensive monitoring for toxicity (Heparin, Nitro, Insulin, Cardizem)? @ -No Were any procedures done? @ -No Diagnosis/symptom? @ -Syncope, COVID-19 Acute, or Chronic, or Acute on Chronic? @ -Acute, acute Uncomplicated (without systemic symptoms) or Complicated (systemic symptoms)? @ -default Side effects of treatment? @ -No Exacerbation, Progression, or Severe Exacerbation? @ -No Poses a threat to life or bodily function? How? (Chest pain, USA, NC, pneumonia, PE, COPD, DKA, ARF, appy, cholecystitis, CVA, Diverticulitis, Homicidal, Suicidal, threat to staff... and all critical care pts) @ -No - Lab Data Result diagrams: 10/13/22 10:01 10/13/22 10:01 Lab Results 10/13/22 10/13/2210/13/23 Range/Units 10:01 10:01 10:01 WBC 3.7 L (3.8-10.6) k/uL RBC 4.50 (4.30-5.90) m/uL Hgb 13.9 (13.0-17.5) gm/dL Hct 40.9 (39.0-53.0) % MCV 91.0 (80.0-100.0) fL MCH 31.0 (25.0-35.0) pg MCHC 34.1 (31.0-37.0) g/dL RDW 13.1 (11.5-15.5) % Plt Count 169 (150-450) k/uL MPV 7.3 Neutrophils % 72 % Lymphocytes % 17 % Monocytes % 7 % Eosinophils % 2 % Basophils % 0 % Neutrophils # 2.7 (1.3-7.7) k/uL Lymphocytes # 0.6 L (1.0-4.8) k/uL Monocytes # 0.3 (0-1.0) k/uL Eosinophils # 0.1 (0-0.7) k/uL Basophils # 0.0 (0-0.2) k/uL PT 11.0 (9.0-12.0) sec INR 1.1 (<1.2) APTT 24.8 (22.0-30.0) sec D-Dimer 0.26 (<0.60) mg/L FEU Sodium 137 (137-145) mmol/L Potassium 4.5 (3.5-5.1) mmol/L Chloride 106 (98-107) mmol/L Carbon Dioxide 25 (22-30) mmol/L Anion Gap 6 mmol/L BUN 6 L (9-20) mg/dL Creatinine 0.97 (0.66-1.25) mg/dL Est GFR (CKD-EPI)AfAm >90 (>60 ml/min/1.73 sqM) Est GFR (CKD-EPI)NonAf 83 (>60 ml/min/1.73 sqM) Glucose 104 H (74-99) mg/dL Calcium 8.6 (8.4-10.2) mg/dL Magnesium 2.1 (1.6-2.3) mg/dL Total Bilirubin 0.3 (0.2-1.3) mg/dL AST 59 (17-59) U/L ALT 65 H (4-49) U/L Alkaline Phosphatase 52 (38-126) U/L Troponin I (0.000-0.034) ng/mL Total Protein 5.7 L (6.3-8.2) g/dL Albumin 3.6 (3.5-5.0) g/dL Urine Color Urine Appearance (Clear) Urine pH (5.0-8.0) Ur Specific Nebo (1.001-1.035) Urine Protein (Negative) Urine Glucose (UA) (Negative) Urine Ketones (Negative) Urine Blood (Negative) Urine Nitrite (Negative) Urine Bilirubin (Negative) Urine Urobilinogen (<2.0) mg/dL Ur Leukocyte Esterase (Negative) 10/13/22 10/13/22 Range/Units 10:01 11:55 WBC (3.8-10.6) k/uL RBC (4.30-5.90) m/uL Hgb (13.0-17.5) gm/dL Hct (39.0-53.0) % MCV (80.0-100.0) fL MCH (25.0-35.0) pg MCHC (31.0-37.0) g/dL RDW (11.5-15.5) % Plt Count (150-450) k/uL MPV Neutrophils % % Lymphocytes % % Monocytes % % Eosinophils % % Basophils % % Neutrophils # (1.3-7.7) k/uL Lymphocytes # (1.0-4.8) k/uL Monocytes # (0-1.0) k/uL Eosinophils # (0-0.7) k/uL Basophils # (0-0.2) k/uL PT (9.0-12.0) sec INR (<1.2) APTT (22.0-30.0) sec D-Dimer (<0.60) mg/L FEU Sodium (137-145) mmol/L Potassium (3.5-5.1) mmol/L Chloride (98-107) mmol/L Carbon Dioxide (22-30) mmol/L Anion Gap mmol/L BUN (9-20) mg/dL Creatinine (0.66-1.25) mg/dL Est GFR (CKD-EPI)AfAm (>60 ml/min/1.73 sqM) Est GFR (CKD-EPI)NonAf (>60 ml/min/1.73 sqM) Glucose (74-99) mg/dL Calcium (8.4-10.2) mg/dL Magnesium (1.6-2.3) mg/dL Total Bilirubin (0.2-1.3) mg/dL AST (17-59) U/L ALT (4-49) U/L Alkaline Phosphatase (38-126) U/L Troponin I <0.012 (0.000-0.034) ng/mL Total Protein (6.3-8.2) g/dL Albumin (3.5-5.0) g/dL Urine Color Light Yellow Urine Appearance Clear (Clear) Urine pH 8.5 H (5.0-8.0) Ur Specific Neb[place] 1.007 (1.001-1.035) Urine Protein Negative (Negative) Urine Glucose (UA) Negative (Negative) Urine Ketones 1+ H (Negative) Urine Blood Negative (Negative) Urine Nitrite Negative (Negative) Urine Bilirubin Negative (Negative) Urine Urobilinogen <2.0 (<2.0) mg/dL Ur Leukocyte Esterase Negative (Negative) Disposition Clinical Impression: Syncope, COVID-19 Disposition: ADMITTED IP TO THIS HOSP Is patient prescribed a controlled substance at d/c from ED?: No Referrals: Aristides Morfin MD [Primary Care Provider] - 1-2 days Time of Disposition: 12:29
[2022-10-13 10:18] LABS: Basophils % (A) 0 %; Eosinophils # (A) 0.1 k/uL (0-0.7); Eosinophils % (A) 2 %; HCT 40.9 % (39.0-53.0); HGB 13.9 gm/dL (13.0-17.5); Lymphocytes # (A) 0.6 k/uL (1.0-4.8); Lymphocytes % (A) 17 %; MCHC 34.1 g/dL (31.0-37.0); Mean Platelet Volume 7.3; Monocytes # (A) 0.3 k/uL (0-1.0); Monocytes % (A) 7 %; Neutrophils # (A) 2.7 k/uL (1.3-7.7); Neutrophils % (A) 72 %; Platelet Count 169 k/uL (150-450); RDW 13.1 % (11.5-15.5); WBC 3.7 k/uL (3.8-10.6)
[2022-10-13 10:31] LABS: INR 1.1 (<1.2); Partial Thromboplastin Time 24.8 sec (22.0-30.0)
--- NOTE | 2022-10-13 10:36 | XR ---
EXAMINATION TYPE: XR chest 2V DATE OF EXAM: 10/13/2022 COMPARISON: Chest x-ray June 18, 2019. CT chest August 14, 2019. HISTORY: Syncope and weakness. TECHNIQUE: Frontal and lateral views of the chest are obtained. FINDINGS: There is no suspicious new focal air space opacity, pleural effusion, or pneumothorax seen . The cardiac silhouette size is stable and within normal limits. The osseous structures are intac t. IMPRESSION: No acute cardiopulmonary process. No significant change from most recent priors.
--- NOTE | 2022-10-13 10:39 | CT ---
EXAMINATION TYPE: CT brain wo con DATE OF EXAM: 10/13/2022 HISTORY: Passed out CT DLP: 1115.1 mGycm. Automated Exposure Control for Dose Reduction was Utilized. TECHNIQUE: CT scan of the head is performed without contrast. COMPARISON: CT brain September 18, 2018. FINDINGS: There is no acute intracranial hemorrhage or midline shift identified. There is mild diff use ventricular and sulcal prominence redemonstrated. Mejia-white matter differentiation is fairly wel l preserved. Partial visualization of mucosal thickening and/or tiny polyps in the bilateral maxillar y sinuses. Mild to moderate mucosal thickening in the anterior ethmoid sinuses. The globes are intact bilaterally. IMPRESSION: No acute intracranial hemorrhage or midline shift. Slightly more prominent but chronic p aranasal sinus disease.
[2022-10-13 10:45] LABS: ALT 65 U/L (4-49); AST 59 U/L (17-59); African American GFR (CKD) >90 (>60 ml/min/1.73 sqM); Albumin 3.6 g/dL (3.5-5.0); Alkaline Phosphatase 52 U/L (38-126); Anion Gap 6 mmol/L; Blood Urea Nitrogen 6 mg/dL (9-20); Calcium 8.6 mg/dL (8.4-10.2); Carbon Dioxide 25 mmol/L (22-30); Chloride 106 mmol/L (98-107); Glucose 104 mg/dL (74-99); Magnesium 2.1 mg/dL (1.6-2.3); Non-African American GFR(CKD) 83 (>60 ml/min/1.73 sqM); Potassium 4.5 mmol/L (3.5-5.1); Sodium 137 mmol/L (137-145); Total Bilirubin 0.3 mg/dL (0.2-1.3); Total Protein 5.7 g/dL (6.3-8.2)
[2022-10-13 12:19] LABS: Appearance,Urine Clear (Clear); Bilirubin,Urine Negative (Negative); Blood,Urine Negative (Negative); Color,Urine Light Yellow; Glucose,Urine (UA) Negative (Negative); Ketones,Urine 1+ (Negative); Leukocyte Esterase,Urine Negative (Negative); Nitrite,Urine Negative (Negative); PH, Urine 8.5 (5.0-8.0); Protein,Urine Negative (Negative); Specific Gravity,Urine 1.007 (1.001-1.035); Urobilinogen,Urine <2.0 mg/dL (<2.0)
[2022-10-13] MEDS ORDERED: ONDANSETRON 4 MG/2 ML VIAL IVP PRN (12:29)
[2022-10-13] MEDS ORDERED: NALOXONE 0.4 MG/ML 1 ML VIAL IV PRN (12:29)
[2022-10-13] MEDS: ACETAMINOPHEN TAB 325 MG TAB PO PRN ×2 (12:44→22:22)
[2022-10-13] MEDS: SODIUM CHLORIDE 0.9% 1,000 ML IV SCH (12:47)
[2022-10-13] MEDS ORDERED: FAMOTIDINE 20 MG TAB PO SCH (21:00)
[2022-10-13] MEDS ORDERED: ALBUTEROL NEBULIZED 2.5 MG/3 ML INHALATION PRN (21:41)
[2022-10-13] MEDS ORDERED: PITAVASTATIN CALCIUM 4 MG PO SCH (21:45)
--- NOTE | 2022-10-13 22:03 | P.HPIM ---
History of Present Illness H&P Date: 10/13/22 Chief Complaint: Syncope Patient is a 61-year-old male with a known history of hypertension, hyperlipidemia, osteoarthritis, asthma, anxiety/depression and prior history of smoking and daily marijuana use and also chronic low back pain presents to ER with complaints of syncopal episode prior to arrival to the ER. Patient follows with Dr. Morfin as an outpatient. Patient has been having nausea and poor oral intake. No complaints of chest pain. Patient does complain of cough without sputum production. Denies shortness of breath. Patient has been afebrile on admission. Patient states that he was diagnosed with COVID-19 infection 3 days ago and has been having sweats at night. He is not vaccinated. Patient states that he was seen by his primary care physician about 8 weeks ago due to due to stomach upset and not eating well. Ultrasound of the abdomen was ordered but was not done yet. According to the patient his PCP was concerned about his gallbladder. Patient also states that he lost about 30 LB's recently. Patient states that he went to see his supplement Dr. For his multivitamin tablets. He has been taking Motrin sometimes daily basis for the past several months due to his low back pain. Laboratory data showed WBC 3.7 hemoglobin 13.9 and platelets 169, D-dimer 0.26 Sodium 137 potassium 4.5 chloride 106 bicarb is 25 BUN 16 creatinine 0.97 and bl ood sugar is 104 AST 59 ALT 65 alk phos 52 Troponin x3 negative Urinalysis is negative for infection. Chest x-ray showed no acute cardiopulmonary process. No significant change from most recent study CT head showed no acute intracranial hemorrhage or midline shift. Slightly more prominent but chronic paranasal sinus disease. EKG showed sinus rhythm Review of Systems Constitutional: Patient denies any fever or chills . Generalized weakness and night sweats. Abdomen: Complains of nausea and no vomiting. Patient does have diarrhea. Denies abdominal pain. Cardiovascular: Patient denies any chest pain or short of breath no palpitations. Respiratory: Cough without sputum production. No shortness of breath Neurologic: Patient denied any numbness or tingling headache. Musculoskeletal: Patient denies any complaints of joint swelling or deformity. Skin: Negative Psychiatric: Negative Endocrine: No heat or cold intolerance. No recent weight gain. Genitourinary: No dysuria or hematuria. All other 14 point ROS negative except the above Past Medical History Past Medical History: Asthma, Hyperlipidemia, Hypertension, Osteoarthritis (OA) Additional Past Medical History / Comment(s): seasonal allergies, hx hiatal hernia, degenerative disks, arthritis lower back and neck, History of Any Multi-Drug Resistant Organisms: None Reported Past Surgical History: Hernia Repair Additional Past Surgical History / Comment(s): pain procedures Past Anesthesia/Blood Transfusion Reactions: No Reported Reaction Past Psychological History: Anxiety, Depression Smoking Status: Former smoker Past Alcohol Use History: None Reported Additional Past Alcohol Use History / Comment(s): smoker for 10 years, 1/2ppd, quit 1989 Past Drug Use History: Marijuana Additional Drug Use History / Comment(s): MARIJUANA USE-DAILY- - Past Family History Mother Family Medical History: Pulmonary Embolus Medications and Allergies Home Medications Medication Instructions Recorded Confirmed Type Albuterol Nebulized [Ventolin 2.5 mg INHALATION RT-QID PRN 11/15/14 10/13/22 History Nebulized] Escitalopram [Lexapro] 20 mg PO DAILY 05/10/20 10/13/22 History Gabapentin [Neurontin] 300 mg PO TID 05/26/20 10/13/22 History Ibuprofen [Motrin] 800 mg PO Q8HR PRN #30 tab 10/10/22 10/13/22 Rx Ondansetron Odt [Zofran Odt] 4 mg PO Q8HR PRN #10 tab 10/10/22 10/13/22 Rx ARIPiprazole [Abilify] 2 mg PO DAILY 10/13/22 10/13/22 History Ezetimibe [Zetia] 10 mg PO DAILY@1200 10/13/22 10/13/22 History Pitavastatin Calcium [Livalo] 4 mg PO HS 10/13/22 10/13/22 History lisinopriL [Prinivil] 10 mg PO DAILY 10/13/22 10/13/22 History Allergies Allergy/AdvReac Type Severity Reaction Status Date / Time rosuvastatin calcium Allergy Severe PAIN/NUMBNESS,"FEELS Verified 10/13/22 13:08 [From Crestor] LIKE HE IS GOING TO " Niguopl-MNQ-EzD Reductase Allergy PAIN/NUMBNESS,"FEELS Verified 10/13/22 13:08 Inhibitor LIKE HE IS [Lrsvcnc-Qpk-Hfj Reductase GOING TO Inhibitor] " Physical Exam Vitals: Vital Signs Temp Pulse Pulse Resp BP BP Pulse Ox 10/13/22 15:23 97.6 F 69 19 143/89 98 10/13/22 13:33 70 18 119/83 98 10/13/22 12:00 71 18 131/83 97 10/13/22 11:00 72 18 114/72 98 10/13/22 10:00 77 18 110/74 99 10/13/22 09:38 97.8 F 66 18 111/78 100 Intake and Output 10/13/22 10/13/22 10/13/22 06:59 14:59 22:59 Intake Total 1230 Balance 1230 Intake: Intake, IV Titration 150 Amount Sodium Chloride 0.9% 1, 150 000 ml @ 75 mls/hr IV . [id number] TRINH Rx#:[id number] Oral 1080 Other: # Voids 2 Weight 81.647 kg PHYSICAL EXAMINATION: Patient is lying in the bed comfortably, no acute distress, awake alert and oriented.. HEENT: Normocephalic. Neck is supple. Pupils reactive. Nostrils clear. Oral cavity is moist. Neck reveals no JVD, carotid bruits, or thyromegaly. CHEST EXAMINATION: Trachea is central. Symmetrical expansion. Lung patel clear to auscultation and percussion. CARDIAC: Normal S1, S2 with no gallops. No murmurs ABDOMEN: Soft. Bowel sounds present. Nontender. No organomegaly. No abdominal bruits. Extremities: reveal no edema. No clubbing or cyanosis Neurologically awake, alert, oriented x3 with well-coordinated movements. No focal deficits noted Skin: No rash or skin lesions. Psychiatric: Coperative. Nonsuicidal, anxious. Musculoskeletal: No joint swelling or deformity. Normal range of motion. Results CBC & Chem 7: 10/13/22 10:01 10/13/22 10:01 Labs: Abnormal Lab Results - Last 24 Hours (Table) 10/13/22 10/13/22 10/13/22 Range/Units 10:01 10:01 11:55 WBC 3.7 L (3.8-10.6) k/uL Lymphocytes # 0.6 L (1.0-4.8) k/uL BUN 6 L (9-20) mg/dL Glucose 104 H (74-99) mg/dL ALT 65 H (4-49) U/L Total Protein 5.7 L (6.3-8.2) g/dL Urine pH 8.5 H (5.0-8.0) Urine Ketones 1+ H (Negative) Thrombosis Risk Factor Assmnt - DVT/VTE Prophylaxis DVT/VTE Prophylaxis: Pharmacologic Prophylaxis ordered - Choose All That Apply Any of the Below Risk Factors Present?: No Other Risk Factors: Yes Each Risk Factor Represents 2 Points: Age 61-74 years Thrombosis Risk Factor Assessment Total Risk Factor Score: 2 Thrombosis Risk Factor Assessment Level: Low Risk Assessment and Plan Assessment: Acute syncopal episode likely due to orthostatic hypotension along with COVID-19 infection. Acute COVID-19 infection diagnosed 4 days ago. Patient is not hypoxic. Not vaccinated. History of recent weight loss Daily NSAID use with Motrin. Chronic low back pain Hypertension Hyperlipidemia Asthma not in exacerbation Osteoarthritis Anxiety/depression Prior history of smoking Daily marijuana use GI and DVT prophylaxis with PPI and heparin subcu Plan: Patient will be continued on IV hydration and check orthostatic vitals. Symptomatic management for nausea and vomiting. Continue with PPI Follow-up inflammatory markers for COVID. Continue with home medications. Patient was recommended to follow-up with primary care physician for further work-up due to recent weight loss. Time with Patient: Greater than 30
[2022-10-13] MEDS: GABAPENTIN 300 MG CAP PO SCH (22:22)
--- NOTE | 2022-10-13 23:44 | US ---
EXAMINATION TYPE: US carotid duplex BILAT DATE OF EXAM: 10/13/2022 COMPARISON: [facility] head 01/11/19 CLINICAL INDICATION: Male, 61 years old with history of syncope; Syncope per order. Hx hypertension, hyperlipidemia, prior smoker many years ago. TECHNIQUE: Carotid duplex ultrasound examination. Indirect Doppler criteria was utilized. FINDINGS: EXAM MEASUREMENTS: RIGHT: Peak Systolic Velocity (PSV) cm/sec ----- Right CCA: 80.9 ----- Right ICA: 95.4 ----- Right ECA: 122.4 ICA/CCA ratio: 1.2 RIGHT: End Diastole cm/sec ----- Right CCA: 22.6 ----- Right ICA: 32.5 ----- Right ECA: 25.4 LEFT: Peak Systolic Velocity (PSV) cm/sec ----- Left CCA: 88.6 ----- Left ICA: 94.1 ----- Left ECA: 187.3 ICA/CCA ratio: 1.1 LEFT: End Diastole cm/sec ----- Left CCA: 24.8 ----- Left ICA: 23.7 ----- Left ECA: 27.0 VERTEBRALS (direction of flow): Right Vertebral: Antegrade Left Vertebral: Antegrade Rhythm: Normal REED MAN NOTES: Plaque seen within left bulb and proximal left ICA and left ECA. *Elevated velocity within left ECA. IMPRESSION: No ultrasound evidence for hemodynamically significant stenosis of the bilateral internal carotid ar teries. Criteria for Assigning % of Stenosis / Diameter reduction (Estimation based on the indirect measurements of the internal carotid artery velocities (ICA PSV). 1. Normal (no stenosis)=ICA PSV < 125 cm/s: ratio < 2.0: ICA EDV<40 cm/s. 2. Less than 50% stenosis=ICA PSV < 125 cm/s: ratio < 2.0: ICA EDV<40 cm/s. 3. 50 to 69% stenosis=ICA PSV of 125 to 230 cm/s: ration 2.0 ? 4.0: ICA EDV 40-100 cm/s. 4. Greater than 70% stenosis to near occlusion= ICA PSV > 230 cm/s: ratio > 4.0: ICA EDV > 100 cm/s. 5. Near occlusion= ICA PSV velocities may be low or undetectable: variable ratio and ICA EDV. 6. Total occlusion=unable to detect flow.
[2022-10-14] MEDS: SODIUM CHLORIDE 0.9% 1,000 ML IV SCH (04:23)
[2022-10-14] MEDS ORDERED: PANTOPRAZOLE 40 MG TABLET PO SCH (07:30)
[2022-10-14] MEDS ORDERED: ESCITALOPRAM 20 MG TAB PO SCH (09:00)
[2022-10-14] MEDS ORDERED: ARIPiprazole 2 MG TAB PO SCH (09:00)
[2022-10-14 09:20] LABS: Urine Alcohol Negative (Negative); Urine Barbiturate Negative (Negative); Urine Cocaine Negative (Negative); Urine Methadone Negative (Negative); Urine Opiates Negative (Negative); Urine Phencyclidine Negative (Negative)
[2022-10-14] MEDS: GABAPENTIN 300 MG CAP PO SCH (09:25)
[2022-10-14 11:47] LABS: Basophils # (A) 0.02 X 10*3/uL (0.00-0.10); Basophils % (A) 0.6 %; Eosinophils # (A) 0.04 X 10*3/uL (0.04-0.35); Eosinophils % (A) 1.2 %; HCT 40.4 % (39.6-50.0); Immature Grans, Automated 0.3 %; Lymphocytes # (A) 0.97 X 10*3/uL (0.90-5.00); Lymphocytes % (A) 29.7 %; MCHC 32.2 g/dL (32.0-37.0); MCV 93.3 fL (80.0-97.0); Mean Platelet Volume 10.1 fL (9.5-12.2); Monocytes % (A) 15.3 %; NRBC Per 100 WBC 0 /100 WBCS (0.0-0.0); Neutrophils # (A) 1.73 X 10*3/uL (1.80-7.70); Neutrophils % (A) 52.9 %; Platelet Count 146 X 10*3/uL (140-440); RBC 4.33 X 10*6/uL (4.40-5.60); RDW 13.6 % (11.5-14.5); WBC 3.27 X 10*3/uL (4.50-10.00)
[2022-10-14] MEDS ORDERED: EZETIMIBE 10 MG TAB PO SCH (12:00)
[2022-10-14 12:08] LABS: ALT 57 U/L (10-49); AST 51 U/L (14-35); Albumin 3.9 g/dL (3.8-4.9); Alkaline Phosphatase 53 U/L (41-126); BUN/Creat Ratio 6.56 Ratio (12.00-20.00); Blood Urea Nitrogen 5.9 mg/dL (9.0-27.0); C Reactive Protein <0.30 mg/dL (0.00-0.80); Calcium 8.5 mg/dL (8.7-10.3); Carbon Dioxide 23.1 mmol/L (20.0-27.5); Chloride 108 mmol/L (96-109); Globulin 1.5 g/dL (1.6-3.3); Glucose 89 mg/dL (70-110); LDH 178 U/L (120-246); Non-African American GFR(CKD) 90.6 (60.0-200.0); Potassium 4.4 mmol/L (3.5-5.5); Sodium 141 mmol/L (135-145); Total Protein 5.4 g/dL (6.2-8.2)
[2022-10-14 15:46] VITALS: BP 100/61; PULSE 79; RESP 19; TEMP 98.2
--- NOTE | 2022-10-15 12:47 | CA ---
Transthoracic Echo Report Name: Giovanny Nicholson Age: 61 Gender: M : 1960 Exam Date: 10/14/2022 13:55 Exam Location: [facility] Ht (in): 73 Wt (lb): 180 Ordering Physician: Genia Eaton MD Attending/Referring Phys: Principal System Software Engineer Sixto Shultz RDCS Procedure CPT: Indications: Syncope Cardiac Hx: Technical Quality: Fair Contrast 1: Total Dose (mL): Contrast 2: Total Dose (mL): MEASUREMENTS (Male / Female) Normal Values 2D ECHO LV Diastolic Diameter PLAX 5.2 cm 4.2 - 5.9 / 3.9 - 5.3 cm LV Systolic Diameter PLAX 4.3 cm LV Fractional Shortening PLAX 16.7 % IVS Diastolic Thickness 0.8 cm 0.6 - 1.0 / 0.6 - 0.9 cm IVS Systolic Thickness 1.0 cm LVPW Diastolic Thickness 1.0 cm 0.6 - 1.0 / 0.6 - 0.9 cm LVPW Systolic Thickness 1.4 cm LV Relative Wall Thickness 0.4 RV Internal Dim ED PLAX 2.3 cm LVOT Diameter 2.2 cm LA Systolic Diameter LX 3.2 cm 3.0 - 4.0 / 2.7 - 3.8 cm LV Diastolic Volume MOD BP 103.8 cm??? 67 - 155 / 56 - 104 cm??? LV Systolic Volume MOD BP 55.2 cm??? 22 - 58 / 19 - 49 cm??? LV Ejection Fraction MOD BP 46.8 % >= 55 % LV Stroke Volume MOD BP 48.6 cm??? LV Diastolic Volume MOD 4C 118.5 cm??? LV Systolic Volume MOD 4C 61.9 cm??? LV Ejection Fraction MOD 4C 47.8 % LV Stroke Volume MOD 4C 56.6 cm??? LV Diastolic Length 4C 8.0 cm LV Systolic Length 4C 7.3 cm LV Diastolic Volume MOD 2C 89.2 cm??? LV Systolic Volume MOD 2C 42.3 cm??? LV Ejection Fraction MOD 2C 52.6 % LV Stroke Volume MOD 2C 46.9 cm??? LV Diastolic Length 2C 7.7 cm LV Systolic Length 2C 6.1 cm M-MODE Aortic Root Diameter MM 3.4 cm LA Systolic Diameter MM 4.6 cm LA Ao Ratio MM 1.4 MV E Point Septal Separation 2.6 cm AV Cusp Separation MM 1.9 cm DOPPLER AV Peak Velocity 139.5 cm/s AV Peak Gradient 7.8 mmHg MV Peak Velocity 97.0 cm/s MV Peak Gradient 3.8 mmHg MV Mean Velocity 72.3 cm/s MV Mean Gradient 2.2 mmHg MV Velocity Time Integral 32.7 cm MV Deceleration [place] 412.4 cm/s??? MR Peak Velocity 500.1 cm/s MR Peak Gradient 100.0 mmHg MR Mean Velocity 411.8 cm/s MR Mean Gradient 72.7 mmHg MR Velocity Time Integral 182.4 cm MR Flow Rate PISA 73.0 cm???/s Mitral E Point Velocity 86.2 cm/s Mitral A Point Velocity 99.4 cm/s Mitral E to A Ratio 0.9 MV Deceleration Time 209.0 ms MV E' Velocity 6.9 cm/s Mitral E to MV E' Ratio 12.5 TR Peak Velocity 204.3 cm/s TR Peak Gradient 16.7 mmHg Right Ventricular Systolic Press 24.7 mmHg PV Peak Velocity 87.0 cm/s PV Peak Gradient 3.0 mmHg FINDINGS Left Ventricle Left ventricular ejection fraction is estimated at 50-55 %. Grade 1 diastolic dysfunction. [place] hypokinetic. Right Ventricle Normal right ventricular size and function. Right Atrium Normal right atrial size. Left Atrium Normal left atrial size. Mitral Valve Mitral valve thickened. [id number] mitral regurgitation. Aortic Valve Trileaflet aortic valve. Tricuspid Valve [id number] tricuspid regurgitation. Pulmonic Valve Pulmonic valve not well visualized. Pericardium Normal pericardium. No pericardial effusion. Aorta Mild aortic dilatation at the level of the sinuses of valsalva (root). CONCLUSIONS Normal LV systolic function Moderate to severe mitral regurgitation Dilated aortic root Previewed by: Dr. Fran Epstein MD (Electronically Signed) Final Date: 15 October 2022 12:46
--- NOTE | 2022-10-18 06:47 | P.DS ---
Providers Date of admission: 10/13/22 12:29 Expected date of discharge: 10/14/22 Attending physician: Genia Eaton Primary care physician: Aristides Morfin Hospital Course: Final diagnosis Acute syncopal episode likely due to orthostatic hypotension along with COVID-19 infection. Acute COVID-19 infection diagnosed 4 days ago. Patient is not hypoxic. Not vaccinated. History of recent weight loss Daily NSAID use with Motrin. Chronic low back pain Hypertension Hyperlipidemia Asthma not in exacerbation Osteoarthritis Anxiety/depression Prior history of smoking Daily marijuana use GI and DVT prophylaxis Discharge disposition Patient is being discharged in a stable condition with guarded prognosis to home. Patient will follow-up with Dr. Morfin in the outpatient setting upon discharge. Patient is to continue with vitamin and zinc supplementation and outpatient follow-up for further testing as scheduled previously. Total time taken is greater than 35 minutes. Hospital course This is a 61-year-old male who was recently admitted with feelings of passing out and was recently diagnosed with Covid infection and was being closely monitored. Patient reports he has been having weight loss and difficulty with tolerating intake and has been following with his primary care provider for this and was recently scheduled for an ultrasound outpatient and had to reschedule and has been instructed and educated to continue with outpatient follow-up. Patient is currently on room air is stable for discharge. Currently no reports of chest pain, shortness of breath, or palpitations. Patient is afebrile. No reports of nausea or vomiting and patient is tolerating some diet. Patient will be discharged home today. Physical exam: Gen: This is a 61-year-old male who is awake, alert and oriented 3, well- developed, well-nourished HEENT: Head is atraumatic, normocephalic. Pupils equal, round. Sclerae is anicteric. NECK: Supple. No JVD. No lymphadenopathy. No thyromegaly. LUNGS: Clear to auscultation. No wheezes or rhonchi. No intercostal retractions. HEART: Regular rate and rhythm. No murmur. ABDOMEN: Soft. Bowel sounds are present. No masses. No tenderness. EXTREMITIES: No pedal edema. No calf tenderness. NEUROLOGICAL: Patient is awake, alert and oriented x3. Cranial nerves 2 through 12 are grossly intact. Please refer to medication reconciliation sheet for a list of medications. The impression and plan of care has been dictated by Hamida Dietz, Nurse Practitioner as directed. Dr. Abel MD I have performed a history and examination and MDM of this patient, discussed the same with the dictator, and agree with the dictator's assessment and plan as written ,documented as a scribe. Based on total visit time, I have performed more than 50% of the visit. Patient Condition at Discharge: Fair Plan - Discharge Summary Discharge Rx Participant: No New Discharge Prescriptions: New Pantoprazole [Protonix] 40 mg PO AC-BRKFST #30 tab Acetaminophen Tab [Tylenol] 650 mg PO Q6HR PRN tab PRN Reason: Mild Pain Or Fever > 100.5 Continue Albuterol Nebulized [Ventolin Nebulized] 2.5 mg INHALATION RT-QID PRN PRN Reason: Shortness Of Breath Escitalopram [Lexapro] 20 mg PO DAILY Gabapentin [Neurontin] 300 mg PO TID Ondansetron Odt [Zofran ODT] 4 mg PO Q8HR PRN #10 tab PRN Reason: Nausea Ezetimibe [Zetia] 10 mg PO DAILY@1200 Pitavastatin Calcium [Livalo] 4 mg PO HS ARIPiprazole [Abilify] 2 mg PO DAILY Discontinued Ibuprofen [Motrin] 800 mg PO Q8HR PRN #30 tab PRN Reason: Pain lisinopriL [Prinivil] 10 mg PO DAILY Discharge Medication List Albuterol Nebulized [Ventolin Nebulized] 2.5 mg INHALATION RT-QID PRN 11/15/14 [History] Escitalopram [Lexapro] 20 mg PO DAILY 05/10/20 [History] Gabapentin [Neurontin] 300 mg PO TID 05/26/20 [History] Ondansetron Odt [Zofran ODT] 4 mg PO Q8HR PRN #10 tab 10/10/22 [Rx] ARIPiprazole [Abilify] 2 mg PO DAILY 10/13/22 [History] Ezetimibe [Zetia] 10 mg PO DAILY@1200 10/13/22 [History] Pitavastatin Calcium [Livalo] 4 mg PO HS 10/13/22 [History] Acetaminophen Tab [Tylenol] 650 mg PO Q6HR PRN tab 10/14/22 [Rx] Pantoprazole [Protonix] 40 mg PO AC-BRKFST #30 tab 10/14/22 [Rx] Follow up Appointment(s)/Referral(s): Aristides Morfin MD [Primary Care Provider] - 10/17/22 11:20 am Patient Instructions/Handouts: COVID-19 (Coronavirus Disease 2019) (DC) Activity/Diet/Wound Care/Special Instructions: Activity Limited until follow-up Follow-up with primary care provider on discharge Follow-up outpatient at your scheduled ultrasound Continue taking medications as prescribed Continue holding lisinopril until follow-up with Dr. Morfin Discharge Disposition: HOME SELF-CARE
== END 2022-10-14 16:43 | disposition home or self-care (01) ==
LOC: EC 09:35 → INTOOBSV 12:29 → 4SSUR 12:29 → UNDODISIN 10-14 16:43
PROVIDERS: ADMIT Internal Medicine; ATTEND Internal Medicine
DX: R55 Syncope and collapse (principal); U07.1 COVID-19; S01.81XA Laceration without foreign body of other part of head, initial encounter; J45.909 Unspecified asthma, uncomplicated; E78.5 Hyperlipidemia, unspecified; I10 Essential (primary) hypertension; M47.819 Spondylosis without myelopathy or radiculopathy, site unspecified; F41.9 Anxiety disorder, unspecified; F32.A Depression, unspecified; F12.90 Cannabis use, unspecified, uncomplicated; I08.1 Rheumatic disorders of both mitral and tricuspid valves; Z79.899 Other long term (current) drug therapy; Z23 Encounter for immunization; Z83.2 Family history of diseases of the blood and blood-forming organs and certain disorders involving the immune mechanism; W19.XXXA Unspecified fall, initial encounter; W45.8XXA Other foreign body or object entering through skin, initial encounter
CPT/HCPCS: 12013; 90471; 96361; 96374; 96375; 99285; 36415; 94760; 93005; 93306; 85379; 80053 ×2; 83615; 83735; 84484; 85025 ×2; 85610; 85730; 86140; 81003; 80306; 71046; 93880; 70450; 90715; G0378 ×2; J2405

== ENCOUNTER → 2022-10-29 | Outpatient (CLI) | payer MEDICARE ==
--- NOTE | 2022-10-29 08:19 | US ---
EXAMINATION TYPE: US abdomen complete DATE OF EXAM: 10/29/2022 COMPARISON: 08/14/2019 CLINICAL INDICATION: Male, 61 years old with history of R10.13; Pain exam limited due to barrel chest ed and bowel gas. TECHNIQUE: Multiple sonographic images of the abdomen are obtained. FINDINGS: EXAM MEASUREMENTS: Liver Length: 15 cm Gallbladder Wall: .3 cm CBD: .5 cm Spleen: Obscured by bowel gas. Right Kidney: 11.1 x 5.0 x 4.0 cm Left Kidney: 11.8 x 5.5 x 5.2 cm Pancreas: Obscured by bowel gas Liver: Increased attenuation Gallbladder: No stones seen Evidence for sonographic Holcomb's sign: No CBD: limited due to bowel gas Spleen: Obscured by overlying bowel gas Right Kidney: No hydronephrosis or masses seen Left Kidney: No hydronephrosis or masses seen Upper IVC: Obscured by overlying bowel gas Abd Aorta: Limited proximal due to bowel gas. IMPRESSION: 1. Hepatic steatosis. 2. No obvious acute process.
== END | disposition home or self-care (01) ==
LOC: RADUSWWP 06:48
PROVIDERS: ATTEND Family Medicine
DX: K76.0 Fatty (change of) liver, not elsewhere classified (principal)
CPT/HCPCS: 76700

== ENCOUNTER → 2024-03-16 | Outpatient (CLI) | payer MEDICARE | LOC: CPPFTMAIN 14:16 | PROVIDERS: ATTEND Family Medicine | DX: J45.20 Mild intermittent asthma, uncomplicated | CPT/HCPCS: 94060; 94726; 94729 ==

== ENCOUNTER → 2024-03-22 | Outpatient (CLI) | payer MEDICARE ==
--- NOTE | 2024-03-22 12:52 | XR ---
EXAMINATION TYPE: XR chest 2V DATE OF EXAM: 03/22/2024 COMPARISON: 10/13/2022 INDICATION: Pneumonia cough history of asthma TECHNIQUE: Frontal and lateral views of the chest are obtained. FINDINGS: The heart size is normal. The pulmonary vasculature is normal. The lungs are clear. IMPRESSION: 1. No acute pulmonary process. [facility], , 03/22/2024 12:49 PM
== END | disposition home or self-care (01) ==
LOC: RADXRMAIN 12:27
PROVIDERS: ATTEND Family Medicine
DX: J18.9 Pneumonia, unspecified organism (principal)
CPT/HCPCS: 71046